=== PATIENT | male | born 1950 | race Asian ===

== ENCOUNTER 2018-06-14 06:08 | Inpatient (IN) | payer MEDICARE, BC ==
[~2018-06-14] VITALS: Ht 170.2 cm; Wt 81.3 kg
[2018-06-14] MEDS ORDERED: SOD CHLORIDE 0.9% 100 ML ONE (06:29)
[2018-06-14] MEDS ORDERED: IOHEXOL 300MG/ML 150 ML BTL ONE (06:29)
[2018-06-14] MEDS ORDERED: ASPIRIN 325 MG TAB PO ONE (06:30)
[2018-06-14] MEDS ORDERED: ASPI-903 PO (07:57)
[2018-06-14] MEDS ORDERED: ATOR20TA38 PO (07:57)
[2018-06-14] MEDS ORDERED: METO-448 PO (07:57)
[2018-06-14] MEDS ORDERED: OMEP20CA16 PO (07:57)
[2018-06-14] MEDS ORDERED: CLOP75TA27 PO (08:17)
[2018-06-14] MEDS ORDERED: ONDANSETRON 4 MG INJ IV PRN (08:30)
[2018-06-14] MEDS ORDERED: ACETAMINOPHEN 325 MG TAB PO PRN (08:30)
--- NOTE | 2018-06-14 09:12 | HP ---
Date/Time of Note Date/Time of Note DATE: 06/14/18 TIME: 09:09 Assessment/Plan VTE Prophylaxis Pharmacological prophylaxis: LMWH Lines/Catheters IV Catheter Type (from Nrs): Saline Lock Assessment/Plan Hospital Course 67-year-old male who presented with right-sided hemiparesis managed as follows: 1. Acute CVA, recurrent, with right-sided paresis 2. L sided carotid stenosis ( at least 50%) likely contributing to #1 3. HTN 4. HLD 5. GERD PLAN: -admit tele -continue aspirin, plavix and high dose statin -Neurology and Vascular surgery consult -MRI brain and 2D echo with bubble study -TSH, lipid panel, urine toxicology screen -PT/ OT / ST Further recommendations per consults and hospital course Result Diagram: 06/14/18 0618 06/14/18 0617 Results 24hrs Laboratory Tests Test 06/14/18 06:17 06/14/18 06:18 06/14/18 06:35 Prothrombin Time 12.7 Prothrombin Time Ratio 1.0 INR International Normalized Ratio 0.94 Activated Partial Thromboplast Time 28.7 Sodium Level 142 Potassium Level 3.8 Chloride Level 104 Carbon Dioxide Level 27 Anion Gap 11 Blood Urea Nitrogen 18 Creatinine 1.07 Est Glomerular Filtrat Rate mL/min > 60 Glucose Level 98 Calcium Level 9.6 Creatine Kinase 59 Creatine Kinase Index 0.7 Creatinine Kinase MB (Mass) 0.40 Troponin I < 0.012 Triglycerides Level 106 Cholesterol Level 160 LDL Cholesterol, Calculated 86 HDL Cholesterol 53 Cholesterol/HDL Ratio 3.0 Ethyl Alcohol Level < 10.0 H White Blood Count 7.1 Red Blood Count 4.38 L Hemoglobin 14.4 Hematocrit 42.5 Mean Corpuscular Volume 97.0 Mean Corpuscular Hemoglobin 32.9 Mean Corpuscular Hemoglobin Concent 33.9 Red Cell Distribution Width 12.5 Platelet Count 145 Mean Platelet Volume 9.9 Immature Granulocytes % 0.400 Neutrophils % 44.6 Lymphocytes % 35.5 Monocytes % 11.5 H Eosinophils % 7.3 H Basophils % 0.7 Nucleated Red Blood Cells % 0.0 Immature Granulocytes # 0.030 Neutrophils # 3.2 Lymphocytes # 2.5 Monocytes # 0.8 Eosinophils # 0.5 Basophils # 0.1 Nucleated Red Blood Cells # 0.0 Hemoglobin A1c 5.4 Bedside Glucose 82 HPI/ROS Admit Date/Time Admit Date/Time Hx of Present Illness 67-year-old male who presented to the emergency room, last known time of being fully well was 11 PM last night and patient presented at about 530 this morning with right-sided paresis. The patient was activated as a code stroke and he was evaluated by tele-neurology and unfortunately was not a candidate for TPA. A CT angiogram of the head and neck done in the emergency room did show left ICA with 50% stenosis and for that tele-neurology does recommend vascular surgery evaluation. The patient recently was in [place] about 3 weeks ago and at that time had similar symptoms and was diagnosed with an acute stroke. He but his symptoms resolved completely and he was maintained on aspirin, Plavix and high-dose statin. At this time, his lower extremity has regained function but he still weaker on the right than the left leg, but he continues to have significant paresis in the right upper extremity. There is no fever, there is no chest pain, there is no abdominal pain, there was no passing out or hitting of his head, no neck pain, no lower extremity swelling or shortness of breath. ROS 12 point review if systems was done and pertinent findings are as noted. PMH/Family/Social Past Medical History * HTN * HLD * GERD Medications Current Medications Ondansetron HCl (Zofran Inj) 4 mg ER BRIDGE PRN IV NAUSEA/VOMITING; Start 06/14/18 at 08:30; Stop 06/15/18 at 08:29 Acetaminophen (Tylenol Tab) 650 mg ER BRIDGE PRN PO .MILD PAIN 1-3 OR TEMP; Start 06/14/18 at 08:30; Stop 06/15/18 at 08:29 Coded Allergies: Penicillins (Verified Allergy, Unknown, 06/14/18) amoxicillin (Verified Allergy, Unknown, 06/14/18) Social History Alcohol Use: none Smoking Status: Never smoker Drug Use: none Exam/Review of Systems Vital Signs Vitals Vital Signs Date Temp Pulse Resp B/P (MAP) Pulse Ox O2 O2 Flow FiO2 Time Delivery Rate 06/14/18 72 18 143/95 99 Room Air 08:38 (111) 06/14/18 2 06:47 06/14/18 97.6 06:31 Exam Constitutional: alert, oriented Psych: nl mood/affect Head: normocephalic, atraumatic Eyes: PERRL ENMT: mucosa pink and moist Neck: supple Respiratory: clear to auscultation; No labored breathing Cardiovascular: regular rate and rhythm; No murmurs/extra sounds Gastrointestinal: soft, non-tender, bowel sounds Extremities: No edema Neurological: FARM HELPER II-XII intact, nl mental status, focal weakness (RUE paresis weak 3/5, RLE paresis weak 4/5); No confused Skin: No rash or lesions Additional Comments PROCEDURE: CT Angiogram of the head and neck with intravenous contrast CLINICAL INDICATION: Code stroke. COMPARISON: MRI 11/04/2017, CT brain 06/14/2018 TECHNIQUE: CT angiogram of the head and neck was obtained. Sagittal and coronal reformations and maximum intensity projection reconstructions were provided. Images were obtained before and after the uneventful administration of 120 mL Omnipaque-300 intravenous contrast. Direct measurements of vessel diameters was made in reference to measurements of the distal internal carotid artery diameter. 3-D post processing was provided. DOSE: The estimated administered radiation dose was CTDI vol = 49.50, 16.04 mGy. DLP = 692.62 mGy-cm. One or more of the following dose reduction techniques were used: automated exposure control, adjustment of the mA and/or kV according to patient size, or use of iterative reconstruction technique. DICOM images are available. FINDINGS: BRAIN Refer to separately dictated noncontrast CT brain of 06/14/2018. CEREBRAL ANGIOGRAM Aneurysm: No aneurysm identified. Anterior circulation: Internal carotid arteries: Atherosclerotic plaque of the bilateral cavernous and supraclinoid internal carotid arteries resulting in a moderate right mild left flow-limiting stenosis. Anterior cerebral arteries: No flow-limiting stenosis. Middle cerebral arteries: No flow-limiting stenosis. Posterior cerebral arteries: No flow-limiting stenosis. Anterior communicating artery: Present No flow-limiting stenosis. Posterior communicating arteries: Present on the right side. Posterior circulation: Basilar artery: No flow-limiting stenosis. V3/V4 vertebral arteries: No flow-limiting stenosis. Dural venous sinuses: Patent. NECK ANGIOGRAM Aorta: No flow-limiting stenosis. Right common carotid artery: No flow-limiting stenosis. Right internal carotid artery: Calcified plaque. Less than a 50 % stenosis by NASCET criteria. Right external carotid artery: No flow-limiting stenosis. Left common carotid artery: No flow-limiting stenosis. Left internal carotid artery: Calcified plaque. Less than a 50% stenosis by NASCET criteria Left external carotid artery: No flow-limiting stenosis. V1/V2 vertebral arteries: No flow-limiting stenosis. Vertebral artery dominance: Codominant. NECK Soft tissues: Normal. Bones: Normal. Lung apices: Clear. Additional comment: None. IMPRESSION: 1. No flow-limiting intracranial stenosis or aneurysm. 2. Less than 50 % stenosis of the bilateral extracranial internal carotid a rteries by NASCET criteria. 3. Bilateral antegrade flow in the vertebral arteries. 4. Moderate right mild left flow-limiting stenosis of the bilateral cavernous and supraclinoid internal carotid arteries. "No evidence for hemodynamically significant stenosis - validated velocity measurements with angiographic measurements, velocity criteria are extrapolated from diameter data as defined by the Society of Radiologists in Ultrasound Consensus Conference Radiology 2003; 229;340-346. This study does indirectly reference the measurement of the distal ICA diameter as the denominator for stenosis measurement." Call report: Results were called to Herrera Escalona at 06/14/2018 7:11:02 AM RPTAT: HRSR Physician Lay Date Time Electronically viewed and signed by Physician Lay on 06/14/2018 07:11 RR/ CC: HERRERA KING MD PROCEDURE: CT head without intravenous contrast CLINICAL INDICATION: Code stroke. COMPARISON: None. TECHNIQUE: Axial CT images from skull base to vertex with coronal and sagittal reformats. DOSE: The estimated administered radiation dose was CTDI vol = 39.64 mGy. DLP = 713.51 mGy-cm. One or more of the following dose reduction techniques were used: automated exposure control, adjustment of the mA and/or kV according to patient size, or use of iterative reconstruction. DICOM images are available. FINDINGS: Parenchyma: No acute hemorrhage, large territorial infarction, or mass. The meehan-white matter junctions are intact. No space occupying intra-axial masses or extra-axial fluid collections are present. There is out parenchymal volume loss. There are areas of decreased attenuation involving the bilateral subcortical, periventricular regions and deep white matter consistent with mild chronic microvascular white matter ischemic disease. Ventricles: No ventriculomegaly or ventricular effacement. Extra-axial spaces: No herniation or midline shift. Paranasal sinuses: Mild mucosal thickening of the bilateral maxillary sinus. Mastoids and middle ears: Clear. Visualized orbits: Normal. Vessels: [<There calcified atherosclerotic arterial plaque identified in the bilateral distal vertebral and bilateral internal carotid arteries.>] Bones: Normal. Extracranial soft tissues: Normal. Additional comment: None. IMPRESSION: 1. No acute intracranial abnormality. 2. Mild generalized parenchymal volume loss. 3. Mild chronic microvascular white matter ischemic disease. 4. Atherosclerosis. Call report: Results were called to Herrera Escalona at 06/14/2018 6:22:14 AM I reviewed EKG Rate: Within normal limits Rhythm: sinus Note: No ST elevation or depressions noted concerning for acute ischemic event. _ PROCEDURE: XR Chest. CLINICAL INDICATION: Chest pain and possible stroke TECHNIQUE: AP Portable chest. COMPARISON: None available FINDINGS: The soft tissues and bones are remarkable for mild bilateral acromioclavicular osteoarthropathy and thoracic enthesopathy. No focal infiltrates masses or effusions are present. The mediastinum and the heart size are normal. Mild vascular calcifications are present of the thoracic aorta. No pneumothorax is present. IMPRESSION: 1. No radiographic evidence for acute cardiopulmonary disease 2. Mild atherosclerotic vascular disease RPTAT: HDC .Sadie Veras MD, MD Date Time Electronically viewed and signed by .Sadie Veras MD, on 06/14/2018 06:50 .C/ CC: HERRERA KING MD [id number] SUSSY MANE Jun 14, 2018 09:12
--- NOTE | 2018-06-14 09:16 | ERD ---
ER Documentation Chief Complaint Chief Complaint RIGHT ARM WEAKNESS X 1 HR HPI Patient is a 67-year-old male with previous stroke who presents with right-sided weakness. The patient went to bed at 11 PM and was at his normal baseline. He woke up at 5:45 AM with right-sided arm weakness. He was brought in by ambulance. Code stroke was called from the field. Symptoms have been constant since this morning and he has had no treatment as of yet. Upon review of old medical records this is the patient's first visit to the emergency department. ROS All systems reviewed and are negative except as per history of present illness. Medications Home Meds Reported Medications Clopidogrel Bisulfate (Clopidogrel) 75 Mg Tablet, 75 MG PO DAILY, #30 TAB 06/14/18 Aspirin* (Aspirin* Chew) 81 Mg Tab.chew, 81 MG PO DAILY, TAB.CHEW 06/14/18 Metoprolol Tartrate* (Lopressor*) 25 Mg Tab, 25 MG PO BID, #60 TAB 06/14/18 Atorvastatin Calcium* (Atorvastatin Calcium*) 20 Mg Tablet, 20 MG PO QHS, #30 TAB 06/14/18 Omeprazole* (Omeprazole*) 20 Mg Capsule.dr, 20 MG PO BID, #60 CAP 06/14/18 Allergies Allergies: Coded Allergies: Penicillins (Verified Allergy, Unknown, 06/14/18) amoxicillin (Verified Allergy, Unknown, 06/14/18) PMhx/Soc Hx Miscellaneous Medical Probl: Yes (htn , high cholesterol ) Hx Substance Use: No Hx Tobacco Use: No Smoking Status: Never smoker FmHx Family History: No diabetes Physical Exam Vitals Vital Signs Date Temp Pulse Resp B/P (MAP) Pulse Ox O2 O2 Flow FiO2 Time Delivery Rate 06/14/18 72 18 143/95 99 Room Air 08:38 (111) 06/14/18 71 18 140/99 99 Room Air 07:32 (113) 06/14/18 72 20 143/100 98 Room Air 06:47 (114) 06/14/18 Nasal 2 06:47 Cannula 06/14/18 97.6 85 20 160/94 96 06:31 (116) Physical Exam Const: No acute distress Head: Atraumatic Eyes: Normal Conjunctiva ENT: Normal External Ears, Nose and Mouth. Neck: Full range of motion. No meningismus. Resp: Clear to auscultation bilaterally Cardio: Regular rate and rhythm, no murmurs Abd: Soft, non tender, non distended. Normal bowel sounds Skin: No petechiae or rashes Back: No midline or flank tenderness Ext: No cyanosis, or edema Neur: Awake and alert, right-sided arm weakness and unable to lift off the bed, right deputy controller strength decreased, cranial nerves II through XII intact, no slurred speech Psych: Normal Mood and Affect Result Diagram: 06/14/18 0618 06/14/18 0617 Results 24 hrs Laboratory Tests Test 06/14/18 06:17 06/14/18 06:18 06/14/18 06:35 Prothrombin Time 12.7 Sec Prothrombin Time Ratio 1.0 INR International Normalized Ratio 0.94 Activated Partial Thromboplast 28.7 Sec Time Sodium Level 142 mmol/L Potassium Level 3.8 mmol/L Chloride Level 104 mmol/L Carbon Dioxide Level 27 mmol/L Anion Gap 11 Blood Urea Nitrogen 18 mg/dl Creatinine 1.07 mg/dl Est Glomerular Filtrat Rate mL/min > 60 mL/min Glucose Level 98 mg/dl Calcium Level 9.6 mg/dl Creatine Kinase 59 IU/L Creatine Kinase Index 0.7 Creatinine Kinase MB (Mass) 0.40 ng/ml Troponin I < 0.012 ng/ml Triglycerides Level 106 mg/dl Cholesterol Level 160 mg/dl LDL Cholesterol, Calculated 86 mg/dl HDL Cholesterol 53 mg/dl Cholesterol/HDL Ratio 3.0 RATIO Ethyl Alcohol Level < 10.0 mg/dl White Blood Count 7.1 10^3/ul Red Blood Count 4.38 10^6/ul Hemoglobin 14.4 g/dl Hematocrit 42.5 % Mean Corpuscular Volume 97.0 fl Mean Corpuscular Hemoglobin 32.9 pg Mean Corpuscular 33.9 g/dl Hemoglobin Concent Red Cell Distribution Width 12.5 % Platelet Count 145 10^3/UL Mean Platelet Volume 9.9 fl Immature Granulocytes % 0.400 % Neutrophils % 44.6 % Lymphocytes % 35.5 % Monocytes % 11.5 % Eosinophils % 7.3 % Basophils % 0.7 % Nucleated Red Blood Cells % 0.0 /100WBC Immature Granulocytes # 0.030 10^3/ul Neutrophils # 3.2 10^3/ul Lymphocytes # 2.5 10^3/ul Monocytes # 0.8 10^3/ul Eosinophils # 0.5 10^3/ul Basophils # 0.1 10^3/ul Nucleated Red Blood Cells # 0.0 10^3/ul Hemoglobin A1c 5.4 % Bedside Glucose 82 mg/dL Current Medications Medications Dose Sig/Ramos Start Time Status Last (Trade) Ordered Route PRN Stop Time Admin Dose Reason Admin Aspirin 325 mg ONCE ONCE 06/14/18 DC 06/14/18 (Aspirin) PO 06:30 06/14/18 06:30 06:31 Sodium 100 ml @ ud STK-MED 06/14/18 DC 06/14/18 Chloride ONCE .ROUTE 06:29 06/14/18 06:31 06:30 Iohexol 150 ml STK-MED 06/14/18 DC 06/14/18 (Omnipaque ONCE .ROUTE 06:29 06/14/18 06:31 300mg/ ml) 06:30 Ondansetron 4 mg ER BRIDGE 06/14/18 HCl (Zofran PRN IV 08:30 06/15/18 Inj) NAUSEA/VOMITI 08:29 NG 650 mg ER BRIDGE 06/14/18 Acetaminophen PRN PO 08:30 06/15/18 (Tylenol .MILD PAIN 08:29 Tab) 1-3 OR TEMP Procedures/MDM CT brain read by radiology. CT of the head and neck read by radiology. Chest x-ray read by radiology. EKG read by me: Rate/Rhythm: Regular rate and rhythm at a normal rate Intervals: Normal Impression: No evidence of ischemia or arrhythmia LAB INTERPRETATION: Normal MEDICAL DECISION MAKING: Patient has an acute stroke which is outside the window for IV TPA as he went to bed at 11 PM. The patient has no large vessel occlusion seen that would require transfer at this time. He does have a stenosis of his carotid artery which may require vascular consultation per telemetry neurology. The patient was given aspirin after he passed a swallow evaluation. He is not a TPA candidate. He had a bedside swallow evaluation and NIH stroke scale performed. Stroke assessment and timing: Last Known Well Time (LKWT): 2300 Arrival to ED: 0607 Stroke code activation: 0605 from the field Patient taken to CT scan: 06 Initial neurology discussion: 0639 NIHSS: Performed by nursing TPA decision-making: Not a TPA candidate given time of onset greater than 4.5 hours Interventional decision-making: No large vessel occlusion so no interventional procedures available. Stroke neurologist on-call: Dr. Tran Critical Care Note: Total time: 35 excluding all billable procedures. Indication/Organ System Threat: Acute neurologic deficit and stroke code activation that requires emergent evaluation and assessment to prevent neurologic compromising collapse. I spent the above amount of critical care time with the patient, not including billable procedures. This included chart review, consultations, repeat bedside evaluations, and titration of appropriate medications to prevent cardiopulmonary or respiratory collapse. I kept the patient and/or family informed of laboratory and diagnostic imaging results throughout the emergency room course. DISPOSITION PLAN: Admit to Dr. Amato from the panel team to a telemetry inpatient bed CONSULTATION: Dr. Tran from telemetry neurology Departure Diagnosis: Primary Impression: Stroke CVA mechanism: unspecified Qualified Codes: I63.9 - Cerebral infarction, unspecified Condition: Serious HERRERA KING MD Jun 14, 2018 09:16
--- NOTE | 2018-06-14 09:31 | STROKE ---
Date/Time of Note Date/Time of Note DATE: 06/14/18 TIME: 09:20 Patient Information General Patient location: emergency Arrival Date Age 67 Gender male Weight 81.82 kg POC Glucose Glucose Result Bedside Glucose - 72 Hours Test 06/14/18 06:35 Bedside Glucose 82 mg/dL (70-220) Vital Signs Vital Signs Vital Signs Date Temp Pulse Resp B/P (MAP) Pulse Ox O2 O2 Flow FiO2 Time Delivery Rate 06/14/18 72 18 143/95 99 Room Air 08:38 (111) 06/14/18 2 06:47 06/14/18 97.6 06:31 Patient History Past Medical History Stroke, Hypertension, Hypercholesterolemia Current Medications Anti-Platelets: ASA 81mg Allergies: Coded Allergies: Penicillins (Verified Allergy, Unknown, 06/14/18) amoxicillin (Verified Allergy, Unknown, 06/14/18) Labs Coagulation Labs: Coagulation Test 06/14/18 06:17 Activated Partial Thromboplast Time 28.7 Sec (23.0-35.0) History & Physical Patient History Notes Pt Hx Reviewed History of Present Illness This is a 67 yo M with history of HTN, HL, recent stroke at the beginning of May, who now comes in with recurrent right sided weakness. He went to bed last night at about 11pm and woke up this morning with symptoms. He is currently on a daily aspirin. Review of Systems Constitutional: no symptoms reported EENTM: no symptoms reported Respiratory: no symptoms reported NIH Stroke Scale NIH Stroke Scale [id number] - Motor Leg - Right: [id number] E: 06/14/18 TIME: 07:11 Submitted By Jose A Tran t-PA Imaging Review Imaging Reviewed: Yes Date/Time Imaging Reviewed DATE: 06/14/18 TIME: 07:00 Imaging Findings no acute stroke or bleed, at least 50% stenosis of the L ICA distal to the bifurcation. intracranial athero t-PA Administration Recommendation: No Weight 81.82 kg Recommedation submitted by Jose A Tran Reason t-PA not Recommended wake up stroke, symptom onset well beyond the eligible window t-PA Not Recommended Date/Time 6:36 AM Recommendations Impression [id number] Site: [id number] Pre-cerebral arteries Diagnosis This is a 67 yo M with HL, HTN, recent stroke who now presents with likely a re current stroke affecting the right side. NIHSS was [address]/CTA studies were reviewed by me and no obvious stroke visualized, however the left ICA is at least 50% stenosed and the likely etiology of his deficits. He is on an antiplatelet and statin at home, however has now had 2 stroke events in less than a month. Disposition admit to telemetry Recommendation 1) admit to telemetry. 2) consult to neurology and vascular surgery regarding carotid revascularization. 3) MRI brain (can be ordered routine). 4) carotid duplex. 5) resume aspirin for now and statin JOSE A TRAN MD Jun 14, 2018 09:31
[2018-06-14 15:29] VITALS: BP 143/91; PULSE 74; RESP 18
[2018-06-14 15:39] VITALS: Ht 170.2 cm; Wt 81.3 kg
--- NOTE | 2018-06-14 16:34 | CONS ---
Assessment/Plan Assessment/Plan Hospital Course 67 M c/ reported recent stroke c/b R hemiparesis, who presents for evaluation of recurrent R arm and leg weakness....for which neurology is consulted.. The clinical picture is most ominously concerning for acute stroke.. However, the identical distribution to his prior event 3 weeks ago raises suspicion for recrudescence.. HCT is unremarkable CTA H/N is notable for mild intracranial athero w/o significant extracranial ICA stenosis... P: MRI brain for further characterization OK to Cont plavix, asa, lipitor daily for secondary stroke prevention for now Permissive HTN to 220/110 today, pending the above Await UA, UDS PT/OT/ST as necessary Other management per primary Will follow clinically Consultation Date/Type/Reason Admit Date/Time Type of Consult Neurology Reason for Consultation right sided weakness Requesting Provider: SUSSY MANE Date/Time of Note DATE: 06/14/18 TIME: 16:34 Hx of Present Illness 67-year-old male who presented to the emergency room, last known time of being fully well was 11 PM last night and patient presented at about 530 this morning with right-sided paresis. The patient was activated as a code stroke and he was evaluated by tele-neurology and unfortunately was not a candidate for TPA. A CT angiogram of the head and neck done in the emergency room did show left ICA with 50% stenosis and for that tele-neurology does recommend vascular surgery evaluation. The patient recently was in [place] about 3 weeks ago and at that time had similar symptoms and was diagnosed with an acute stroke. He but his symptoms resolved completely and he was maintained on aspirin, Plavix and high-dose statin. At this time, his lower extremity has regained function but he still weaker on the right than the left leg, but he continues to have significant paresis in the right upper extremity. There is no fever, there is no chest pain, there is no abdominal pain, there was no passing out or hitting of his head, no neck pain, no lower extremity swelling or shortness of breath. negative unless noted otherwise in HPI Exam/Review of Systems Exam Vitals Vital Signs Date Temp Pulse Resp B/P (MAP) Pulse Ox O2 O2 Flow FiO2 Time Delivery Rate 06/14/18 97.9 74 18 143/91 97 15:29 (108) 06/14/18 Room Air 13:53 06/14/18 2 06:47 Exam PE: Gen Appearance: No Apparent Distress HEENT: Normocephalic Cardiovascular: Regular rate Lungs: Clear bilaterally Abdomen: Soft Extremities: Dry NE: The patient was alert and oriented. Language was normal. Fund of knowledge was normal. Pupils were equal and reactive to light. There was no afferent pupillary defect. Visual khoury were normal. Funduscopic examination was limited. Extra-ocular movements were full. Ptosis was absent. There was no nystagmus. Facial sensation was normal. Face was symmetric with normal strength. Hearing was intact. Palate movements were normal. Neck strength was normal. There was normal tongue bulk and speed of movement. Tone was normal. Muscle bulk was normal. I did not see fasciculations. R arm and leg were weak with present arm/leg drift. L side was strong to confrontation. Sensation to touch was diminished in the RUE. Vibration sensation was otherwise normal. Temperature and pinprick sensation was normal. Rapid alternating movements were normal. There was no dysmetria. There was no intention tremor. Gait was deferred due to bedrest. Arm and leg reflexes were 2+ and symmetric. Pompa's sign was absent. Plantar responses were flexor. Results Result Diagram: 06/14/18 0618 06/14/18 0617 Results 24hrs Laboratory Tests Test 06/14/18 06:17 06/14/18 06:18 06/14/18 06:35 Prothrombin Time 12.7 Prothrombin Time Ratio 1.0 INR International Normalized Ratio 0.94 Activated Partial Thromboplast Time 28.7 Sodium Level 142 Potassium Level 3.8 Chloride Level 104 Carbon Dioxide Level 27 Anion Gap 11 Blood Urea Nitrogen 18 Creatinine 1.07 Est Glomerular Filtrat Rate mL/min > 60 Glucose Level 98 Calcium Level 9.6 Creatine Kinase 59 Creatine Kinase Index 0.7 Creatinine Kinase MB (Mass) 0.40 Troponin I < 0.012 Triglycerides Level 106 Cholesterol Level 160 LDL Cholesterol, Calculated 86 HDL Cholesterol 53 Cholesterol/HDL Ratio 3.0 Ethyl Alcohol Level < 10.0 H White Blood Count 7.1 Red Blood Count 4.38 L Hemoglobin 14.4 Hematocrit 42.5 Mean Corpuscular Volume 97.0 Mean Corpuscular Hemoglobin 32.9 Mean Corpuscular Hemoglobin Concent 33.9 Red Cell Distribution Width 12.5 Platelet Count 145 Mean Platelet Volume 9.9 Immature Granulocytes % 0.400 Neutrophils % 44.6 Lymphocytes % 35.5 Monocytes % 11.5 H Eosinophils % 7.3 H Basophils % 0.7 Nucleated Red Blood Cells % 0.0 Immature Granulocytes # 0.030 Neutrophils # 3.2 Lymphocytes # 2.5 Monocytes # 0.8 Eosinophils # 0.5 Basophils # 0.1 Nucleated Red Blood Cells # 0.0 Hemoglobin A1c 5.4 Bedside Glucose 82 Medications Medication Current Medications Ondansetron HCl (Zofran Inj) 4 mg ER BRIDGE PRN IV NAUSEA/VOMITING; Start 06/14/18 at 08:30; Stop 06/15/18 at 08:29 Acetaminophen (Tylenol Tab) 650 mg ER BRIDGE PRN PO .MILD PAIN 1-3 OR TEMP; S tart 06/14/18 at 08:30; Stop 06/15/18 at 08:29 Aspirin (Aspirin) 81 mg DAILY PO ; Start 06/15/18 at 09:00 Atorvastatin Calcium (Lipitor) 80 mg QHS PO ; Start 06/14/18 at 21:00 Clopidogrel Bisulfate (plaVIX) 75 mg DAILY PO ; Start 06/15/18 at 09:00 Metoprolol Tartrate (Lopressor) 25 mg BID PO ; Start 06/14/18 at 21:00; Status Hold Pantoprazole (Protonix Tab) 40 mg DAILY@06 PO ; Start 06/15/18 at 06:00 Past Medical History reviewed Home Meds Reported Medications Clopidogrel Bisulfate (Clopidogrel) 75 Mg Tablet, 75 MG PO DAILY, #30 TAB 06/14/18 Aspirin* (Aspirin* Chew) 81 Mg Tab.chew, 81 MG PO DAILY, TAB.CHEW 06/14/18 Metoprolol Tartrate* (Lopressor*) 25 Mg Tab, 25 MG PO BID, #60 TAB 06/14/18 Atorvastatin Calcium* (Atorvastatin Calcium*) 20 Mg Tablet, 20 MG PO QHS, #30 TAB 06/14/18 Omeprazole* (Omeprazole*) 20 Mg Capsule.dr, 20 MG PO BID, #60 CAP 06/14/18 Medications Current Medications Ondansetron HCl (Zofran Inj) 4 mg ER BRIDGE PRN IV NAUSEA/VOMITING; Start 06/14/18 at 08:30; Stop 06/15/18 at 08:29 Acetaminophen (Tylenol Tab) 650 mg ER BRIDGE PRN PO .MILD PAIN 1-3 OR TEMP; Start 06/14/18 at 08:30; Stop 06/15/18 at 08:29 Aspirin (Aspirin) 81 mg DAILY PO ; Start 06/15/18 at 09:00 Atorvastatin Calcium (Lipitor) 80 mg QHS PO ; Start 06/14/18 at 21:00 Clopidogrel Bisulfate (plaVIX) 75 mg DAILY PO ; Start 06/15/18 at 09:00 Metoprolol Tartrate (Lopressor) 25 mg BID PO ; Start 06/14/18 at 21:00; Status Hold Pantoprazole (Protonix Tab) 40 mg DAILY@06 PO ; Start 06/15/18 at 06:00 Allergies: Coded Allergies: Penicillins (Verified Allergy, Unknown, 06/14/18) amoxicillin (Verified Allergy, Unknown, 06/14/18) Past Surgical History reviewed Social History reviewed Alcohol Use: none Smoking Status: Former smoker Drug Use: none RENATA HOOVER NP Jun 14, 2018 16:34 COSTA RAPP Jun 14, 2018 16:41
[2018-06-14 17:11] VITALS: PULSE 67
[2018-06-14 20:05] VITALS: BP 134/82; PULSE 73; RESP 20
[2018-06-14 20:19] VITALS: PULSE 62
[2018-06-14] MEDS: ATORVASTATIN 80 MG TAB PO SCH (20:43)
[2018-06-14] MEDS ORDERED: METOPROLOL 25 MG TAB PO SCH (21:00)
[2018-06-14] MEDS ORDERED: NON-FORMULARY/PATIENT OWN MED (Omeprazole* 20 MG) PO SCH (21:00)
[2018-06-15] VITALS (14 sets, daily range): BP systolic 113–146; BP diastolic 63–83; PULSE 61–80; RESP 18–20
[2018-06-15] MEDS: PANTOPRAZOLE (EC) 40 MG TAB PO SCH (06:37)
[2018-06-15] MEDS: ASPIRIN 81 MG TAB PO SCH (08:25)
[2018-06-15] MEDS: CLOPIDOGREL 75 MG TAB PO SCH (08:25)
--- NOTE | 2018-06-15 10:35 | RADRPT ---
Echocardiogram Report Patient Name: Kayden MIRZAent ID: [id number] : 1950 (67y 10m)Study Date: 06/15/2018 8:36:57 AM Gender: MAccession #: [id number] Tech: Lan Gresham [facility] [[email or web address]] Location: [address] Ref.Physician: SUSSY MANE Height(Cm): BSA: Weight(Kg): Quality: AdequateAccount #: Procedures: Echocardiographic Report: Transthoracic echocardiogram with complete 2D, M-Mode, and doppler examination. Indications: Chest Pain. Measurements: 2D/M Mode Doppler Measurement Value Normal Range Measurement Value Normal Range LVIDd 2D 4.2 [ 4.2 - 5.8 ] cm AV Peak Saqib 1.1 [ 100.0 - 170.0 ] cm/sec LVIDs 2D 2.7 [ 2.5 - 4.0 ] cm AV Peak PG 5.0 [ 2.0 - 9.0 ] mmHg LVPWd 2D 0.9 [ 0.6 - 1.0 ] cm LVOT Peak Saqib 1.0 [ 70.0 - 110.0 ] cm/sec IVSd 2D 1.4 [ 0.6 - 1.0 ] cm LVOT Peak PG 4.0 [ 2.0 - 6.0 ] mmHg AoR Diam 2D 2.5 [ 2.6 - 3.4 ] cm MV E Peak Saqib 0.6 [ 60.0 - 130.0 ] cm/sec EDV 2D 79.5 [ 62.0 - 150.0 ] ml MV A Peak Saqib 1.0 [ 100.0 - 120.0 ] cm/sec ESV 2D 25.8 [ 21.0 - 61.0 ] ml MV E/A 0.6 [ 0.8 - 1.5 ] ratio EF 2D 67.5 [ 52.0 - 72.0 ] percent MV Decel Time 218 [ 104 - 258 ] msec LA Dimen 2D 3.5 [ 3.0 - 4.0 ] cm Lat E` Saqib 0.1 [ 10.0 - 15.0 ] cm/sec Lateral E/E` 5.1 [ 1.0 - 2.0 ] ratio MV E/A 0.6 [ 0.8 - 1.5 ] ratio TR Peak Saqib 2.6 [ 100.0 - 280.0 ] cm/sec TR Peak PG 26.0 mmHg RVSP 36.0 [ 10.0 - 36.0 ] mmHg Findings: Left Ventricle: Normal left ventricular systolic function. Normal left ventricular cavity size. Sigmoid septum. Ejection fraction is visually estimated at 65 %. Tissue Doppler/Mitral Doppler indices are consistent with impaired relaxation (Stage I diastolic dysfunction). Right Ventricle: Normal right ventricular size. Normal right ventricular systolic function. Left Atrium: The left atrium is normal in size. Right Atrium: The right atrium is normal in size. Atrial Septum: Bubble study was performed with and with out valsalva indicating no evidence of intra atrial shunt. Mitral Valve: Mild mitral leaflet calcification. Mild mitral annular calcification. Trace mitral regurgitation. Aortic Valve: No hemodynamically significant aortic stenosis by doppler. Aortic cusps appear mildly calcified. Tricuspid Valve: Normal appearance of the tricuspid valve. Estimated peak PA systolic pressure 36 mmHg. There is mild tricuspid regurgitation. Pulmonic Valve: Normal pulmonic valve appearance. There is mild pulmonic regurgitation. Pericardium: Normal pericardium with no significant pericardial effusion. Aorta: Normal aortic root. IVC: Normal size and normal respiratory collapse consistent with normal right atrial pressure. Conclusions: Normal left ventricular systolic function. Normal left ventricular cavity size. Sigmoid septum. Ejection fraction is visually estimated at 65 %. Tissue Doppler/Mitral Doppler indices are consistent with impaired relaxation (Stage I diastolic dysfunction). Mild mitral leaflet calcification. Mild mitral annular calcification. Trace mitral regurgitation. No hemodynamically significant aortic stenosis by doppler. Aortic cusps appear mildly calcified. Normal appearance of the tricuspid valve. Estimated peak PA systolic pressure 36 mmHg. There is mild tricuspid regurgitation. Bubble study was performed with and with out valsalva indicating no evidence of intra atrial shunt. Electronically Signed By: Caleb Gonzales 2018-06-15 10:34:16 PDT
--- NOTE | 2018-06-15 15:50 | CONS ---
Assessment/Plan Assessment/Plan Hospital Course 67 M c/ reported recent stroke c/b R hemiparesis, who presents for evaluation of recurrent R arm and leg weakness....for which neurology is consulted.. The identical distribution to his prior event 3 weeks ago raises suspicion for recrudescence.. MRI brain is notable for multiple punctate L hemispheric infarcts on DWI, without definitive ADC correlate. CTA H/N is notable for mild intracranial athero w/o significant extracranial ICA stenosis... P: OK to cont plavix, asa, lipitor daily for secondary stroke prevention for now Await UA, UDS PT/OT/ST as necessary Other management per primary Will follow clinically Consultation Date/Type/Reason Admit Date/Time Jun 14, 2018 at 08:15 Type of Consult Neurology Reason for Consultation weakness Requesting Provider: SUSSY MANE Date/Time of Note DATE: 06/15/18 TIME: 15:50 24 HR Interval Summary Free Text/Dictation Continues acute care. S/p MRI brain. Exam Vital Signs Vitals Vital Signs Date Temp Pulse Resp B/P (MAP) Pulse Ox O2 O2 Flow FiO2 Time Delivery Rate 06/15/18 98.2 65 19 113/63 96 15:35 (80) 06/14/18 Room Air 13:53 06/14/18 2 06:47 Intake and Output 06/14/18 06/14/18 06/15/18 1515:00 23:00 07:00 IntakeIntake Total 300 ml OutputOutput Total 600 ml BalanceBalance -300 ml Exam PE: Gen Appearance: No Apparent Distress HEENT: Normocephalic Cardiovascular: Regular rate Lungs: Clear bilaterally Abdomen: Soft Extremities: Dry NE: The patient was alert and oriented. Language was normal. Fund of knowledge was normal. Pupils were equal and reactive to light. There was no afferent pupillary defect. Visual khoury were normal. Funduscopic examination was limited. Extra-ocular movements were full. Ptosis was absent. There was no nystagmus. Facial sensation was normal. Face was symmetric with normal strength. Hearing was intact. Palate movements were normal. Neck strength was normal. There was normal tongue bulk and speed of movement. Tone was normal. Muscle bulk was normal. I did not see fasciculations. R arm and leg were weak with present arm/leg drift. L side was strong to confrontation. Sensation to touch was diminished in the RUE. Vibration sensation was otherwise normal. Temperature and pinprick sensation was normal. Rapid alternating movements were normal. There was no dysmetria. There was no intention tremor. Gait was deferred due to bedrest. Arm and leg reflexes were 2+ and symmetric. Pompa's sign was absent. Plantar responses were flexor. RENATA HOOVER NP Jun 15, 2018 15:50 COSTA RAPP Jun 15, 2018 21:06
[2018-06-15] MEDS: ATORVASTATIN 80 MG TAB PO SCH (20:59)
[2018-06-16] VITALS (11 sets, daily range): BP systolic 123–148; BP diastolic 70–87; PULSE 68–87; RESP 16–18
[2018-06-16] MEDS: PANTOPRAZOLE (EC) 40 MG TAB PO SCH (05:31)
--- NOTE | 2018-06-16 07:15 | CONS ---
Assessment/Plan Assessment/Plan Hospital Course 67 M c/ reported recent stroke c/b R hemiparesis, who presents for evaluation of recurrent R arm and leg weakness....for which neurology is consulted.. MRI brain is notable for multiple punctate L hemispheric infarcts on DWI, without definitive ADC correlate. OSH MRI brain from May 2018 was reviewed...there is certainly an accumulation of ischemia since this exam was completed.. CTA H/N is notable for mild intracranial athero w/o significant extracranial ICA stenosis... TTE is unrevealing. P: OK to cont plavix, asa, lipitor daily for secondary stroke prevention for now Cardiology consult for ARIC Consider 30 day holter to eval for paroxysmal afib if the above is unrevealing or unavailable.. PT/OT/ST as necessary Other management per primary Will follow clinically Consultation Date/Type/Reason Admit Date/Time Jun 14, 2018 at 08:15 Type of Consult Neurology Reason for Consultation weakness Requesting Provider: SUSSY MANE Date/Time of Note DATE: 06/16/18 TIME: 07:15 24 HR Interval Summary Free Text/Dictation continues acute care Exam Vital Signs Vitals Vital Signs Date Temp Pulse Resp B/P (MAP) Pulse Ox O2 O2 Flow FiO2 Time Delivery Rate 06/16/18 97.8 78 16 123/70 98 Room Air 07:04 (87) 06/14/18 2 06:47 Intake and Output 06/15/18 06/15/18 06/16/18 1515:00 23:00 07:00 IntakeIntake Total 1000 ml BalanceBalance 1000 ml Exam PE: Gen Appearance: No Apparent Distress HEENT: Normocephalic Cardiovascular: Regular rate Abdomen: Soft Extremities: Dry NE: The patient was alert and oriented. Language was normal. Fund of knowledge was normal. Pupils were equal and reactive to light. There was no afferent pupillary defect. Visual khoury were normal. Funduscopic examination was limited. Extra-ocular movements were full. Ptosis was absent. There was no nystagmus. Facial sensation was normal. Face was symmetric with normal strength. Hearing was intact. Palate movements were normal. Neck strength was normal. There was normal tongue bulk and speed of movement. Tone was normal. Muscle bulk was normal. I did not see fasciculations. Arms and legs were mildly weak on the right. Vibration sensation was normal. Temperature and pinprick sensation was normal. Rapid alternating movements were normal. There was no dysmetria. There was no intention tremor. Gait was deferred due to bedrest. Arm and leg reflexes were 2+ and symmetric. Pompa's sign was absent. Plantar responses were flexor. COSTA RAPP Jun 16, 2018 07:15
[2018-06-16] MEDS: ASPIRIN 81 MG TAB PO SCH (08:33)
[2018-06-16] MEDS: CLOPIDOGREL 75 MG TAB PO SCH (08:33)
--- NOTE | 2018-06-16 14:09 | PN ---
Date/Time of Note Date/Time of Note DATE: 06/16/18 TIME: 14:00 Assessment/Plan VTE Prophylaxis [place] [facility] [place]: 3 [place]CD applied [place] [facility] [place] Yes Pharmacological prophylaxis: NA/contraindicated, heparin Pharm contraindication: other (Patient is high risk for hemorrhagic transformation as he is also on dual antiplatelet therapy) Lines/Catheters IV [facility]atheter Type (from [facility]): Saline Lock Assessment/Plan Hospital Course Subjective: Feels well, having improved range of motion in right upper extremity Objective: General: Alert, oriented, no distress Neck: Supple Chest: Clear to auscultation bilaterally Cardiovascular: S1-S2 only, no murmurs Abdomen: Soft, nontender, not nondistended, positive bowel sounds Extremity: No edema Neurology: 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 Left lower extremity remains fine. Assessment and plan: 67-year-old male who presented with right-sided hemiparesis managed as follows: 1. Acute CVA, recurrent, with right-sided paresis improving: -MRI showed multiple small embolic strokes. -Neurology compared outside hospital MRI brain from May, with the one that was done here, it was determined that there is certainly an accumulation of ischemia since then. They recommended ARIC and possible 30-day Holter to evaluate for paroxysmal atrial fibrillation if ARIC was unrevealing. -Cardiology consultation has been obtained. -Continue dual antiplatelets and statin therapy 2. L sided carotid stenosis: -Patient has moderate right-sided flow-limiting stenosis in the supraclinoid portion of internal carotid artery, but no hemodynamically significant stenosis in the neck portion. -Based on this, vascular surgery has determined that patient does not need any surgical intervention from his standpoint. -He stated that if neurology felt vascular intervention was necessary, patient will need either neurosurgery or neuroradiology. -Spoke with neurology, the no surgical intervention is required at this time for findings described above. 3. HTN: good control 4. HLD: continue statin 5. GERD -Continue inpatient rehab, await cardiology recommendations and plan. Patient will likely get ARIC tomorrow. Result Diagram: 06/16/18 0620 06/16/18 0621 Results 24hrs Laboratory Tests Test 06/16/18 06:20 06/16/18 06:21 White Blood Count 7.4 Red Blood Count 4.50 L Hemoglobin 14.8 Hematocrit 43.7 Mean Corpuscular Volume 97.1 Mean Corpuscular Hemoglobin 32.9 Mean Corpuscular Hemoglobin Concent 33.9 Red Cell Distribution Width 12.3 Platelet Count 167 Mean Platelet Volume 10.1 Immature Granulocytes % 0.500 H Neutrophils % 61.9 Lymphocytes % 17.8 Monocytes % 11.8 H Eosinophils % 7.2 H Basophils % 0.8 Nucleated Red Blood Cells % 0.0 Immature Granulocytes # 0.040 H Neutrophils # 4.6 Lymphocytes # 1.3 Monocytes # 0.9 Eosinophils # 0.5 Basophils # 0.1 Nucleated Red Blood Cells # 0.0 Sodium Level 140 Potassium Level 3.6 Chloride Level 105 Carbon Dioxide Level 26 Anion Gap 9 Blood Urea Nitrogen 18 Creatinine 1.06 Est Glomerular Filtrat Rate mL/min > 60 Glucose Level 81 Calcium Level 9.6 Exam/Review of Systems Exam Vitals Vital Signs Date Temp Pulse Resp B/P (MAP) Pulse Ox O2 O2 Flow FiO2 Time Delivery Rate 06/16/18 69 12:13 06/16/18 98.0 18 132/87 97 Room Air 11:00 (102) 06/14/18 2 06:47 Intake and Output 06/15/18 06/15/18 06/16/18 1515:00 23:00 07:00 IntakeIntake Total 1000 ml BalanceBalance 1000 ml Results Results 24hrs Laboratory Tests Test 06/16/18 06:20 06/16/18 06:21 White Blood Count 7.4 Red Blood Count 4.50 L Hemoglobin 14.8 Hematocrit 43.7 Mean Corpuscular Volume 97.1 Mean Corpuscular Hemoglobin 32.9 Mean Corpuscular Hemoglobin Concent 33.9 Red Cell Distribution Width 12.3 Platelet Count 167 Mean Platelet Volume 10.1 Immature Granulocytes % 0.500 H Neutrophils % 61.9 Lymphocytes % 17.8 Monocytes % 11.8 H Eosinophils % 7.2 H Basophils % 0.8 Nucleated Red Blood Cells % 0.0 Immature Granulocytes # 0.040 H Neutrophils # 4.6 Lymphocytes # 1.3 Monocytes # 0.9 Eosinophils # 0.5 Basophils # 0.1 Nucleated Red Blood Cells # 0.0 Sodium Level 140 Potassium Level 3.6 Chloride Level 105 Carbon Dioxide Level 26 Anion Gap 9 Blood Urea Nitrogen 18 Creatinine 1.06 Est Glomerular Filtrat Rate mL/min > 60 Glucose Level 81 Calcium Level 9.6 Medications Medication Current Medications Aspirin (Aspirin) 81 mg DAILY PO Last administered on 06/16/18 08:33; Admin Dose 81 MG; Start 06/15/18 at 09:00 Atorvastatin Calcium (Lipitor) 80 mg QHS PO Last administered on 06/15/18at 20:59; Admin Dose 80 MG; Start 06/14/18 at 21:00 Clopidogrel Bisulfate (plaVIX) 75 mg DAILY PO Last administered on 06/16/18at 08:33; Admin Dose 75 MG; Start 06/15/18 at 09:00 Metoprolol Tartrate (Lopressor) 25 mg BID PO ; Start 06/14/18 at 21:00; Status Hold Pantoprazole (Protonix Tab) 40 mg DAILY@06 PO Last administered on 06/16/18at 05:31; Admin Dose 40 MG; Start 06/15/18 at 06:00 SUSSY MANE Jun 16, 2018 14:09
--- NOTE | 2018-06-16 15:45 | CONS ---
Assessment/Plan Assessment/Plan Hospital Course (Demo Recall) Recurrent stroke with right sided deficits: Neurology eval and comparison of MRIs showed that he has new lesions on the left. CTA showed <50% carotid stenosis and vascular surgery did not think the pt needed intervention. Bubble study has been negative. No arrhythmias on tele. Possible that he still has a right to left shunt which is not well seen by bubble study. Also with palpitations, occult afib is in the differential. Bilateral carotid artery stenosis: <50% per CTA -ARIC tomorrow to eval -NPO after midnight -check bilateral lower extremities for DVTs since hes been traveling and if he has a shunt, would explain his strokes -continue ASA, plavix, lipitor -if above unrevealing, outpt 30 day monitor Consultation Date/Type/Reason Admit Date/Time Jun 14, 2018 at 08:15 Date of Consultation: Jun 16, 2018 Type of Consult Cardiology Reason for Consultation Stroke, r/o cardioembolic source Requesting Provider: SUSSY MANE Date/Time of Note DATE: 06/16/18 TIME: 15:29 Hx of Present Illness 67 yo M with a h/o recent stroke while traveling to [facility], who presented with recurrent right arm weakness. He was in [place] about 3-4 weeks ago when he started to have right arm and leg weakness. He was in the hospital for a few days and was told he needed carotid surgery but could not be fly home for 2 wee ks. He came back last week and in the meantime his symptoms improved 90%. On date of admission, he had weakness in his right arm again which again have improved. Neurology eval and comparison of MRIs showed that he has new lesions on the left. CTA showed <50% carotid stenosis and vascular surgery did not think the pt needed intervention. Bubble study has been negative. No arrhythmias on tele. The question of cardioembolic source is being entertained for which cardiology is consulted. The pt denies a h/o arrhythmias but does admit that once a month he gets palpitations lasting 30 seconds. Otherwise no cardiac disease. No leg swelling or pain. He walks around on the airplane when he travels. per HPI Past Medical History per hPI Home Meds Reported Medications Clopidogrel Bisulfate (Clopidogrel) 75 Mg Tablet, 75 MG PO DAILY, #30 TAB 06/14/18 Aspirin* (Aspirin* Chew) 81 Mg Tab.chew, 81 MG PO DAILY, TAB.CHEW 06/14/18 Metoprolol Tartrate* (Lopressor*) 25 Mg Tab, 25 MG PO BID, #60 TAB 06/14/18 Atorvastatin Calcium* (Atorvastatin Calcium*) 20 Mg Tablet, 20 MG PO QHS, #30 TAB 06/14/18 Omeprazole* (Omeprazole*) 20 Mg Capsule.dr, 20 MG PO BID, #60 CAP 06/14/18 Medications Current Medications Aspirin (Aspirin) 81 mg DAILY PO Last administered on 06/16/18at 08:33; Admin Dose 81 MG; Start 06/15/18 at 09:00 Atorvastatin Calcium (Lipitor) 80 mg QHS PO Last administered on 06/15/18at 20:59; Admin Dose 80 MG; Start 06/14/18 at 21:00 Clopidogrel Bisulfate (plaVIX) 75 mg DAILY PO Last administered on 06/16/18at 08:33; Admin Dose 75 MG; Start 06/15/18 at 09:00 Metoprolol Tartrate (Lopressor) 25 mg BID PO ; Start 06/14/18 at 21:00; Status Hold Pantoprazole (Protonix Tab) 40 mg DAILY@06 PO Last administered on 06/16/18at 05:31; Admin Dose 40 MG; Start 06/15/18 at 06:00 Allergies: Coded Allergies: Penicillins (Verified Allergy, Unknown, 06/14/18) amoxicillin (Verified Allergy, Unknown, 06/14/18) Social History Alcohol Use: none Smoking Status: Former smoker Drug Use: none Exam/Review of Systems Exam Vitals Vital Signs Date Temp Pulse Resp B/P (MAP) Pulse Ox O2 O2 Flow FiO2 Time Delivery Rate 06/16/18 69 12:13 06/16/18 98.0 18 132/87 97 Room Air 11:00 (102) 06/14/18 2 06:47 Intake and Output 06/15/18 06/15/18 06/16/18 1515:00 23:00 07:00 IntakeIntake Total 1000 ml BalanceBalance 1000 ml Constitutional: alert, oriented Psych: no complaints, nl mood/affect Head: normocephalic, atraumatic Neck: supple; No jvd Respiratory: clear to auscultation; No crackles/rales Cardiovascular: regular rate and rhythm; No edema, No systolic murmur Gastrointestinal: soft, non-tender, distended Neurological: nl mental status, nl speech Results Result Diagram: 06/16/18 0620 06/16/18 0621 Results 24hrs Laboratory Tests Test 06/16/18 06:20 06/16/18 06:21 White Blood Count 7.4 Red Blood Count 4.50 L Hemoglobin 14.8 Hematocrit 43.7 Mean Corpuscular Volume 97.1 Mean Corpuscular Hemoglobin 32.9 Mean Corpuscular Hemoglobin Concent 33.9 Red Cell Distribution Width 12.3 Platelet Count 167 Mean Platelet Volume 10.1 Immature Granulocytes % 0.500 H Neutrophils % 61.9 Lymphocytes % 17.8 Monocytes % 11.8 H Eosinophils % 7.2 H Basophils % 0.8 Nucleated Red Blood Cells % 0.0 Immature Granulocytes # 0.040 H Neutrophils # 4.6 Lymphocytes # 1.3 Monocytes # 0.9 Eosinophils # 0.5 Basophils # 0.1 Nucleated Red Blood Cells # 0.0 Sodium Level 140 Potassium Level 3.6 Chloride Level 105 Carbon Dioxide Level 26 Anion Gap 9 Blood Urea Nitrogen 18 Creatinine 1.06 Est Glomerular Filtrat Rate mL/min > 60 Glucose Level 81 Calcium Level 9.6 Medications Medication Current Medications Aspirin (Aspirin) 81 mg DAILY PO Last administered on 06/16/18 08:33; Admin Dose 81 MG; Start 06/15/18 at 09:00 Atorvastatin Calcium (Lipitor) 80 mg QHS PO Last administered on 06/15/18at 20:59; Admin Dose 80 MG; Start 06/14/18 at 21:00 Clopidogrel Bisulfate (plaVIX) 75 mg DAILY PO Last administered on 06/16/18at 08:33; Admin Dose 75 MG; Start 06/15/18 at 09:00 Metoprolol Tartrate (Lopressor) 25 mg BID PO ; Start 06/14/18 at 21:00; Status Hold Pantoprazole (Protonix Tab) 40 mg DAILY@06 PO Last administered on 06/16/18at 05:31; Admin Dose 40 MG; Start 06/15/18 at 06:00 BERONICA TORRES Jun 16, 2018 15:40
--- NOTE | 2018-06-16 18:45 | PN ---
DATE: 06/15/2018 SUBJECTIVE: The patient was seen and evaluated. He is having improved deployment specialist in right upper extremity: We discussed the plan of care. OBJECTIVE: VITAL SIGNS: Temperature 98.2, pulse 65, respirations 19, blood pressure 113/63, saturations 96% on room air. GENERAL: Currently, in no distress. HEENT: Head is normocephalic. Pupils are equal and reactive. NECK: Supple. CHEST: Clear. CARDIOVASCULAR: S1, S2. No arrhythmias on tele. No murmurs. ABDOMEN: Soft, nontender. EXTREMITIES: Lower extremities: No edema. The patient is having improved deployment specialist in the arm but still quite weak. Left side is unremarkable. IMAGING: MRI was reviewed with the radiologist and there is concern for multiple small embolic phenomena. ASSESSMENT: 1. Acute multiple embolic strokes, recurrent, involving the left frontal gyri, caudate lobe and left temporal gyrus. This is recurrent. The patient had similar episode 3 weeks ago and recovered without residual paresis. 2. Supraclinoid moderate flow limiting carotid stenosis on the right side seen on CTA. 3. Hypertension with good control at this time. 4. Dyslipidemia on high dose statin. 5. History of gastroesophageal reflux disease. PLAN: I spoke extensively with vascular surgery. First of all, Dr. Hutchison at that time states the patient does not need vascular surgery intervention because there is no carotid stenosis that is significant in the neck. He did determine that if neurology felt the patient needed surgical intervention, we will have to talk to neuro-radiology or neurosurgery. Based on this, I spoke with neurology, Dr. Latia Askew. Dr. Askew does have concerns that the patient might not have an acute insult and the findings on MRI might be the same as what happened 3 weeks ago with some recrudescence. She would like to review the MRIs from 3 weeks ago and compare to determine her final recommendations. In the interim, we will continue high dose statin. Continue dual antiplatelet with aspirin and Plavix. Continue inpatient rehabilitation. If neurology determines that no further intervention is warranted at this time, the patient will be discharged home to the care of his family with home health for physical therapy. This was discussed with him in detail. Questions were answered. Dictated By: SUSSY MANE MD BA/NTS Conf#: [id number] DID#: [id number] CC: YELITZA HUTCHISON MD;*EndCC* MTDD
[2018-06-16] MEDS: ATORVASTATIN 80 MG TAB PO SCH (20:11)
[2018-06-17] VITALS (12 sets, daily range): BP systolic 109–133; BP diastolic 68–87; PULSE 67–90; RESP 18–20
[2018-06-17] MEDS: PANTOPRAZOLE (EC) 40 MG TAB PO SCH (05:20)
--- NOTE | 2018-06-17 07:00 | CONS ---
Assessment/Plan Assessment/Plan Hospital Course 67 M c/ reported recent stroke c/b R hemiparesis, who presents for evaluation of recurrent R arm and leg weakness....for which neurology is consulted.. MRI brain is notable for multiple punctate L hemispheric infarcts on DWI, without definitive ADC correlate. OSH MRI brain from May 2018 was reviewed...there is certainly an accumulation of ischemia since this exam was completed.. CTA H/N is notable for mild intracranial athero w/o significant extracranial ICA stenosis... TTE is unrevealing. P: OK to cont plavix, asa, lipitor daily for secondary stroke prevention for now Await ARIC Consider 30 day holter to eval for paroxysmal afib if the above is unrevealing or unavailable.. PT/OT/ST as necessary Other management per primary Will follow clinically Consultation Date/Type/Reason Admit Date/Time Jun 14, 2018 at 08:15 Type of Consult Neurology Reason for Consultation weakness Requesting Provider: SUSSY MANE Date/Time of Note DATE: 06/17/18 TIME: 07:00 24 HR Interval Summary Free Text/Dictation Continues acute care Exam Vital Signs Vitals Vital Signs Date Temp Pulse Resp B/P (MAP) Pulse Ox O2 O2 Flow FiO2 Time Delivery Rate 06/17/18 90 04:00 06/17/18 98.5 18 109/68 96 Room Air 03:50 (82) 06/14/18 2 06:47 Intake and Output 06/16/18 06/16/18 06/17/18 1515:00 23:00 07:00 IntakeIntake Total 1020 ml 240 ml OutputOutput Total 400 ml BalanceBalance 1020 ml -160 ml Exam PE: Gen Appearance: No Apparent Distress HEENT: Normocephalic Cardiovascular: Regular rate Abdomen: Soft Extremities: Dry NE: The patient was alert and oriented. Language was normal. Fund of knowledge was normal. Pupils were equal and reactive to light. There was no afferent pupillary defect. Visual khoury were normal. Funduscopic examination was limited. Extra-ocular movements were full. Ptosis was absent. There was no nystagmus. Facial sensation was normal. Face was symmetric with normal strength. Hearing was intact. Palate movements were normal. Neck strength was normal. There was normal tongue bulk and speed of movement. Tone was normal. Muscle bulk was normal. I did not see fasciculations. Arms and legs were mildly weak on the right. Vibration sensation was normal. Temperature and pinprick sensation was normal. Rapid alternating movements were normal. There was no dysmetria. There was no intention tremor. Gait was deferred due to bedrest. Arm and leg reflexes were 2+ and symmetric. Pompa's sign was absent. Plantar responses were flexor. COSTA RAPP Jun 17, 2018 07:00 RENATA HOOVER NP Jun 17, 2018 14:58
[2018-06-17] MEDS: CLOPIDOGREL 75 MG TAB PO SCH (08:06)
[2018-06-17] MEDS: ASPIRIN 81 MG TAB PO SCH (08:06)
--- NOTE | 2018-06-17 10:37 | PREAC ---
Date/Time of Note Date/Time of Note DATE: 06/17/18 TIME: 10:34 Anesthesia Eval and Record Evaluation Time Pre-Procedure Interview DATE: 06/17/18 TIME: 10:34 Age 67 Sex male NPO: 8 hrs Preoperative diagnosis recurrent acute embolic strokes Planned procedure ARIC Past Medical History Past Medical History: Includes Cardio: HTN, Dyslipidemia Pulm: Smoking Hx (quit 1988) Neuro: CVA (right side weakness in [place] 3 weeks ago), Other (R carotid stenosis) Hepatic: Hepatitis (Hep B on remission, completed treatment per patient ) GI: GERD (denies symptoms today) Surgery & Anesthesia Issues No known issue Meds Anticoagulation: Yes (ASA and Plavix) Beta Markell within 24 hr: Yes Reported Medications Clopidogrel Bisulfate (Clopidogrel) 75 Mg Tablet, 75 MG PO DAILY, #30 TAB 06/14/18 Aspirin* (Aspirin* Chew) 81 Mg Tab.chew, 81 MG PO DAILY, TAB.CHEW 06/14/18 Metoprolol Tartrate* (Lopressor*) 25 Mg Tab, 25 MG PO BID, #60 TAB 06/14/18 Atorvastatin Calcium* (Atorvastatin Calcium*) 20 Mg Tablet, 20 MG PO QHS, #30 TAB 06/14/18 Omeprazole* (Omeprazole*) 20 Mg Capsule.dr, 20 MG PO BID, #60 CAP 06/14/18 Current Medications Aspirin (Aspirin) 81 mg DAILY PO Last administered on 06/17/18at 08:06; Admin Dose 81 MG; Start 06/15/18 at 09:00 Atorvastatin Calcium (Lipitor) 80 mg QHS PO Last administered on 06/16/18at 20:11; Admin Dose 80 MG; Start 06/14/18 at 21:00 Clopidogrel Bisulfate (plaVIX) 75 mg DAILY PO Last administered on 06/17/18at 08:06; Admin Dose 75 MG; Start 06/15/18 at 09:00 Metoprolol Tartrate (Lopressor) 25 mg BID PO ; Start 06/14/18 at 21:00; Status Hold Pantoprazole (Protonix Tab) 40 mg DAILY@06 PO Last administered on 06/17/18at 05:20; Admin Dose 40 MG; Start 06/15/18 at 06:00 Meds reviewed: Yes Allergies Coded Allergies: Penicillins (Verified Allergy, Unknown, 06/14/18) amoxicillin (Verified Allergy, Unknown, 06/14/18) Allergies Reviewed: Yes Labs/Studies Labs Reviewed: Reviewed by anesthesiologist Result Diagram: 06/17/1826 06/17/18625 Laboratory Tests 06/17/18 06:26 test: N/A Studies: ECG (SR with 1st degree AVB) Pre-procedure Exam Last vitals Vital Signs Date Temp Pulse Resp B/P (MAP) Pulse Ox O2 O2 Flow FiO2 Time Delivery Rate 06/17/18 83 09:57 06/17/18 98.1 20 115/78 93 07:37 (90) 06/17/18 Room Air 03:50 06/14/18 2 06:47 Airway: Adequate mouth opening, Adequate thyromental dist Mallampati: Mallampati II Teeth: Normal Lung: Normal Heart: Normal ASA Physical Status ASA physical status: 3 Emergency: None Planned Anesthetic General/MAC: MAC, TIVA Planned Pain Management Parenteral pain med Pre-operative Attestations Prior to commencing anesthesia and surgery, the patient was re-evaluated, there was verification of: *The patient's identity *The results of appropriate recent lab work and preoperative vital signs *The above evaluation not changing prior to induction *Anesthetic plan, risk benefits, alternative and complications discussed with patient/family; questions answered; patient/family understands, accepts and wishes to proceed. ARACELIS HOWE Jun 17, 2018 10:37
--- NOTE | 2018-06-17 15:22 | RADRPT ---
Transesophageal Echo Report Patient Name: Kayden MIRZAent ID: [id number] : 1950 (67y 10m)Study Date: 06/17/2018 12:54:06 PM Gender: MAccession #: [id number] Tech: Lan Gresham [facility] Location: [facility] Ref.Physician: BERONICA TORRES Height(Cm): BSA: Weight(Kg): Quality: AdequateAccount #: Procedures: Transesophageal Echo Report: Transesophageal echocardiogram was performed. PREP: Patient received pre-procedure education; informed consent, baseline vital signs, and focused history and physical were obtained. SEDATION: Systemic sedation was achieved. ESOPHAGEAL INTUBATION: After suitable sedation, the probe was passed. Continuous pulse oximetry, electrocardiographic, and blood pressure monitoring were maintained throughout the procedure. Standard views were obtained in the transgastric, mid-esophageal, and basal planes at approximately 0, 30, 90, and 120 degrees. In addition, agitated saline study was performed. No immediate ARIC complications noted. Indications: R/o Emboli. Description of Procedure: Beronica Torres MD. Findings: Left Ventricle: Normal left ventricular systolic function. Normal left ventricular size. Ejection fraction is measured at 65 %. Right Ventricle: Normal right ventricular size. Normal right ventricular systolic function. Left Atrium: The left atrium is normal in size. Right Atrium: The right atrium is normal in size. Atrial Septum: No shunt by color Doppler and by bubble study. Mitral Valve: Trivial mitral regurgitation. Aortic Valve: Normal function of the aortic valve. Tricuspid Valve: Normal appearance of the tricuspid valve. There is mild tricuspid regurgitation. Pulmonic Valve: Normal pulmonic valve appearance and function. There is trace pulmonic regurgitation. Pericardium: Normal pericardium with no significant pericardial effusion. Aorta: Normal aortic root. Grade I atheromatous plaquing of the aorta. Pulmonary Veins: Pulmonary veins are normal in appearance. Atrial Appendage: Normal atrial appendage no thrombi or echogenic structure seen. Conclusions: No Vegetation, masses, or thrombi seen. Normal atrial appendage no thrombi or echogenic structure seen. No shunt by color Doppler and by bubble study. Normal left ventricular systolic function. Normal left ventricular size. Ejection fraction is measured at 65 %. Normal valvular function. Electronically Signed By: Beronica Torres 2018-06-17 15:20:51 PDT
--- NOTE | 2018-06-17 15:23 | CONS ---
Assessment/Plan Assessment/Plan Hospital Course (Demo Recall) Recurrent stroke with right sided deficits: Neurology eval and comparison of MRIs showed that he has new lesions on the left. CTA showed <50% carotid stenosis and vascular surgery did not think the pt needed intervention. Bubble study has been negative. No arrhythmias on tele. Also with palpitations, occult afib is in the differential. ARIC 06/17/18 completely unremarkable including normal appendage, no ASD/PFO, normal valves Bilateral carotid artery stenosis: <50% per CTA -?reconsider left carotid plaque as source of strokes -continue ASA, plavix, lipitor -outpt 30 day monitor to be arranged in my office after discharge Consultation Date/Type/Reason Admit Date/Time Jun 14, 2018 at 08:15 Initial Consult Date 06/16/18 Type of Consult Cardiology Requesting Provider: SUSSY MANE Date/Time of Note DATE: 06/17/18 TIME: 15:21 24 HR Interval Summary Free Text/Dictation ARIC unremarkable. No arrhythmias on tele Exam/Review of Systems Exam Vitals Vital Signs Date Temp Pulse Resp B/P (MAP) Pulse Ox O2 O2 Flow FiO2 Time Delivery Rate 06/17/18 98.0 78 18 122/78 97 Room Air 15:10 (93) 06/14/18 2 06:47 Intake and Output 06/16/18 06/16/18 06/17/18 1515:00 23:00 07:00 IntakeIntake Total 1020 ml 240 ml OutputOutput Total 400 ml BalanceBalance 1020 ml -160 ml Constitutional: alert, oriented Psych: no complaints, nl mood/affect Head: normocephalic, atraumatic Neck: supple; No jvd Respiratory: clear to auscultation; No crackles/rales Cardiovascular: regular rate and rhythm; No edema Gastrointestinal: soft, non-tender Neurological: nl mental status, nl speech Results Result Diagram: 06/17/18 0606/17/18 06 Results 24hrs Laboratory Tests Test 06/16/18 22:00 06/17/18 06:26 Urine Color STRAW Urine Clarity CLEAR Urine pH 6.0 Urine Specific [place] 1.003 Urine Ketones NEGATIVE Urine Nitrite NEGATIVE Urine Bilirubin NEGATIVE Urine Urobilinogen NEGATIVE Urine Leukocyte Esterase NEGATIVE Urine Hemoglobin NEGATIVE Urine Glucose NEGATIVE Urine Total Protein NEGATIVE Urine Opiates Screen Negative Urine Barbiturates Negative Urine Amphetamines Screen Negative Urine Benzodiazepines Screen Negative Urine Cocaine Screen Negative Urine Cannabinoids Negative White Blood Count 6.8 Red Blood Count 4.67 L Hemoglobin 15.0 Hematocrit 44.9 Mean Corpuscular Volume 96.1 Mean Corpuscular Hemoglobin 32.1 Mean Corpuscular Hemoglobin Concent 33.4 Red Cell Distribution Width 12.5 Platelet Count 164 Mean Platelet Volume 10.1 Immature Granulocytes % 0.300 Neutrophils % 58.4 Lymphocytes % 21.2 Monocytes % 12.1 H Eosinophils % 7.4 H Basophils % 0.6 Nucleated Red Blood Cells % 0.0 Immature Granulocytes # 0.020 Neutrophils # 4.0 Lymphocytes # 1.4 Monocytes # 0.8 Eosinophils # 0.5 Basophils # 0.0 Nucleated Red Blood Cells # 0.0 Sodium Level 142 Potassium Level 3.9 Chloride Level 107 Carbon Dioxide Level 28 Anion Gap 7 Blood Urea Nitrogen 21 H Creatinine 1.04 Est Glomerular Filtrat Rate mL/min > 60 Glucose Level 94 Calcium Level 9.7 Medications Medication Current Medications Aspirin (Aspirin) 81 mg DAILY PO Last administered on 06/17/18 08:06; Admin Dose 81 MG; Start 06/15/18 at 09:00 Atorvastatin Calcium (Lipitor) 80 mg QHS PO Last administered on 06/16/18at 20:11; Admin Dose 80 MG; Start 06/14/18 at 21:00 Clopidogrel Bisulfate (plaVIX) 75 mg DAILY PO Last administered on 06/17/18 08:06; Admin Dose 75 MG; Start 06/15/18 at 09:00 Metoprolol Tartrate (Lopressor) 25 mg BID PO ; Start 06/14/18 at 21:00; Status Hold Pantoprazole (Protonix Tab) 40 mg DAILY@06 PO Last administered on 06/17/18 05:20; Admin Dose 40 MG; Start 06/15/18 at 06:00 BERONICA TORRES Jun 17, 2018 15:23
--- NOTE | 2018-06-17 15:53 | PAC ---
Date/Time of Note Date/Time of Note DATE: 06/17/18 TIME: 15:53 Post-Anesthesia Notes Post-Anesthesia Note Last documented vital signs Vital Signs Date Temp Pulse Resp B/P (MAP) Pulse Ox O2 O2 Flow FiO2 Time Delivery Rate 06/17/18 98.0 78 18 122/78 97 Room Air 15:10 (93) 06/14/18 2 06:47 Activity: WNL Respiratory function: WNL Cardiovascular function: WNL Mental status: Baseline Pain reasonably controlled: Yes Hydration appropriate: Yes Nausea/Vomiting absent: No CATHERINE MEJIA MD Jun 17, 2018 15:53
--- NOTE | 2018-06-17 19:07 | CONS ---
Assessment/Plan Assessment/Plan Assessment/Plan (Daily) CVA Carotid stenosis less than 50% on CT angiogram not hemodynamically significant Continue antiplatelets Follow-up carotid ultrasound regularly Consultation Date/Type/Reason Admit Date/Time Jun 14, 2018 at 08:15 Date of Consultation: Jun 17, 2018 Type of Consult Vascular surgery Reason for Consultation Carotid stenosis Date/Time of Note DATE: 06/17/18 TIME: 19:02 Hx of Present Illness 67-year-old male with a history of hypertension hyperlipidemia patient has had a recent stroke beginning of May being admitted because of further neurological deficits was found to have less than 50% stenosis in the carotid arteries based on the CT angiogram he is currently on aspirin and is recovering from his stroke Respiratory: no complaints Cardiovascular: no complaints Gastrointestinal: no complaints Genitourinary: no complaints Musculoskeletal: no complaints Skin: no complaints Neurologic: no complaints Endocrine: no complaints Past Medical History Home Meds Reported Medications Clopidogrel Bisulfate (Clopidogrel) 75 Mg Tablet, 75 MG PO DAILY, #30 TAB 06/14/18 Aspirin* (Aspirin* Chew) 81 Mg Tab.chew, 81 MG PO DAILY, TAB.CHEW 06/14/18 Metoprolol Tartrate* (Lopressor*) 25 Mg Tab, 25 MG PO BID, #60 TAB 06/14/18 Atorvastatin Calcium* (Atorvastatin Calcium*) 20 Mg Tablet, 20 MG PO QHS, #30 TAB 06/14/18 Omeprazole* (Omeprazole*) 20 Mg Capsule.dr, 20 MG PO BID, #60 CAP 06/14/18 Medications Current Medications Aspirin (Aspirin) 81 mg DAILY PO Last administered on 06/17/18at 08:06; Admin Dose 81 MG; Start 06/15/18 at 09:00 Atorvastatin Calcium (Lipitor) 80 mg QHS PO Last administered on 06/16/18at 20:11; Admin Dose 80 MG; Start 06/14/18 at 21:00 Clopidogrel Bisulfate (plaVIX) 75 mg DAILY PO Last administered on 06/17/18at 08: 06; Admin Dose 75 MG; Start 06/15/18 at 09:00 Metoprolol Tartrate (Lopressor) 25 mg BID PO ; Start 06/14/18 at 21:00; Status Hold Pantoprazole (Protonix Tab) 40 mg DAILY@06 PO Last administered on 06/17/18at 05:20; Admin Dose 40 MG; Start 06/15/18 at 06:00 Allergies: Coded Allergies: Penicillins (Verified Allergy, Unknown, 06/14/18) amoxicillin (Verified Allergy, Unknown, 06/14/18) Social History Alcohol Use: none Smoking Status: Former smoker Drug Use: none Exam/Review of Systems Exam Vitals Vital Signs Date Temp Pulse Resp B/P (MAP) Pulse Ox O2 O2 Flow FiO2 Time Delivery Rate 06/17/18 70 16:39 06/17/18 98.0 18 122/78 97 Room Air 15:10 (93) 06/14/18 2 06:47 Intake and Output 06/16/18 06/16/18 06/17/18 1515:00 23:00 07:00 IntakeIntake Total 1020 ml 240 ml OutputOutput Total 400 ml BalanceBalance 1020 ml -160 ml ENMT: nl external ears & nose, nl lips & teeth, nl nasal mucosa & septum Neck: supple, non-tender Respiratory: clear to auscultation, normal air movement Cardiovascular: regular rate and rhythm, nl pulses Gastrointestinal: soft, nl liver, spleen, non-tender Extremities: normal pulses Neurological: TRAIN OPERATOR II-XII intact, nl mental status, nl speech, nl strength Results Result Diagram: 06/17/1862506/17/18 06 Results 24hrs Laboratory Tests Test 06/16/18 22:00 06/17/18 06:26 Urine Color STRAW Urine Clarity CLEAR Urine pH 6.0 Urine Specific [place] 1.003 Urine Ketones NEGATIVE Urine Nitrite NEGATIVE Urine Bilirubin NEGATIVE Urine Urobilinogen NEGATIVE Urine Leukocyte Esterase NEGATIVE Urine Hemoglobin NEGATIVE Urine Glucose NEGATIVE Urine Total Protein NEGATIVE Urine Opiates Screen Negative Urine Barbiturates Negative Urine Amphetamines Screen Negative Urine Benzodiazepines Screen Negative Urine Cocaine Screen Negative Urine Cannabinoids Negative White Blood Count 6.8 Red Blood Count 4.67 L Hemoglobin 15.0 Hematocrit 44.9 Mean Corpuscular Volume 96.1 Mean Corpuscular Hemoglobin 32.1 Mean Corpuscular Hemoglobin Concent 33.4 Red Cell Distribution Width 12.5 Platelet Count 164 Mean Platelet Volume 10.1 Immature Granulocytes % 0.300 Neutrophils % 58.4 Lymphocytes % 21.2 Monocytes % 12.1 H Eosinophils % 7.4 H Basophils % 0.6 Nucleated Red Blood Cells % 0.0 Immature Granulocytes # 0.020 Neutrophils # 4.0 Lymphocytes # 1.4 Monocytes # 0.8 Eosinophils # 0.5 Basophils # 0.0 Nucleated Red Blood Cells # 0.0 Sodium Level 142 Potassium Level 3.9 Chloride Level 107 Carbon Dioxide Level 28 Anion Gap 7 Blood Urea Nitrogen 21 H Creatinine 1.04 Est Glomerular Filtrat Rate mL/min > 60 Glucose Level 94 Calcium Level 9.7 Medications Medication Current Medications Aspirin (Aspirin) 81 mg DAILY PO Last administered on 06/17/18 08:06; Admin Dose 81 MG; Start 06/15/18 at 09:00 Atorvastatin Calcium (Lipitor) 80 mg QHS PO Last administered on 06/16/18at 20:11; Admin Dose 80 MG; Start 06/14/18 at 21:00 Clopidogrel Bisulfate (plaVIX) 75 mg DAILY PO Last administered on 06/17/18 08:06; Admin Dose 75 MG; Start 06/15/18 at 09:00 Metoprolol Tartrate (Lopressor) 25 mg BID PO ; Start 06/14/18 at 21:00; Status Hold Pantoprazole (Protonix Tab) 40 mg DAILY@06 PO Last administered on 06/17/18at 05:20; Admin Dose 40 MG; Start 06/15/18 at 06:00 YELITZA LEI MD Jun 17, 2018 19:07
[2018-06-17] MEDS: ATORVASTATIN 80 MG TAB PO SCH (21:33)
[2018-06-18] VITALS: PULSE 75
[2018-06-18 03:43] VITALS: BP 131/76; PULSE 76; RESP 18
[2018-06-18 04:00] VITALS: PULSE 79
[2018-06-18] MEDS: PANTOPRAZOLE (EC) 40 MG TAB PO SCH (05:11)
[2018-06-18 07:22] VITALS: BP 138/91; PULSE 78; RESP 18
--- NOTE | 2018-06-18 07:49 | CONS ---
Assessment/Plan Assessment/Plan Hospital Course 67 M c/ reported recent stroke c/b R hemiparesis, who presents for evaluation of recurrent R arm and leg weakness....for which neurology is consulted.. MRI brain is notable for multiple punctate L hemispheric infarcts on DWI, without definitive ADC correlate. OSH MRI brain from May 2018 was reviewed...there is certainly an accumulation of ischemia since this exam was completed.. CTA H/N is notable for mild intracranial athero w/o significant extracranial ICA stenosis... TTE is unrevealing. ARIC was the same P: OK to cont plavix, asa, lipitor daily for secondary stroke prevention for now 30 day holter to eval for paroxysmal afib, as able PT/OT/ST as necessary Other management per primary Neurologically cleared for d/c Consultation Date/Type/Reason Admit Date/Time Jun 14, 2018 at 08:15 Type of Consult Neurology Reason for Consultation weakness Requesting Provider: SUSSY MANE Date/Time of Note DATE: 06/18/18 TIME: 07:49 24 HR Interval Summary Free Text/Dictation Continues acute care. S/p ARIC. Pt states that his sxs are improving Exam Vital Signs Vitals Vital Signs Date Temp Pulse Resp B/P (MAP) Pulse Ox O2 O2 Flow FiO2 Time Delivery Rate 06/18/18 98.4 78 18 138/91 97 Room Air 07:22 (107) Intake and Output 06/17/18 06/17/18 06/18/18 1515:00 23:00 07:00 IntakeIntake Total 420 ml 450 ml BalanceBalance 420 ml 450 ml Exam PE: Gen Appearance: No Apparent Distress HEENT: Normocephalic Cardiovascular: Regular rate Abdomen: Soft Extremities: Dry NE: The patient was alert and oriented. Language was normal. Fund of knowledge was normal. Pupils were equal and reactive to light. There was no afferent pupillary defect. Visual khoury were normal. Funduscopic examination was limited. Extra-ocular movements were full. Ptosis was absent. There was no nystagmus. Facial sensation was normal. Face was symmetric with normal strength. Hearing was intact. Palate movements were normal. Neck strength was normal. There was normal tongue bulk and speed of movement. Tone was normal. Muscle bulk was normal. I did not see fasciculations. Arms and legs were mildly weak on the right, though improved. Vibration sensation was normal. Temperature and pinprick sensation was normal. Rapid alternating movements were normal. There was no dysmetria. There was no intention tremor. Gait was deferred due to bedrest. Arm and leg reflexes were 2+ and symmetric. Pompa's sign was absent. Plantar responses were flexor. COSTA RAPP Jun 18, 2018 07:49 RENATA HOOVER NP Jun 18, 2018 12:58
[2018-06-18 08:12] VITALS: PULSE 71
[2018-06-18] MEDS: CLOPIDOGREL 75 MG TAB PO SCH (08:16)
[2018-06-18] MEDS: ASPIRIN 81 MG TAB PO SCH (08:16)
--- NOTE | 2018-06-18 11:39 | DS ---
Date/Time of Note Date/Time of Note DATE: 06/18/18 TIME: 11:36 Discharge Summary Admission/Discharge Info Admit Date/Time Jun 14, 2018 at 08:15 Discharge Date/Time Discharge Diagnosis 67-year-old male who presented with right-sided hemiparesis managed as follows: 1. Acute CVA, recurrent, with right-sided paresis improving: -MRI showed multiple small embolic strokes, more than previous -ARIC was unrevealing. No arrythmias on in-house tele x at least 48hrs -30-day Holter to evaluate for paroxysmal atrial fibrillation to be set up by PCP / cardio outpatient -Continue dual antiplatelets and statin therapy 2. L sided carotid stenosis: -Patient has moderate right-sided flow-limiting stenosis in the supraclinoid portion of internal carotid artery, but no hemodynamically significant stenosis in the neck portion. -Based on this, vascular surgery has determined that patient does not need any surgical intervention from his standpoint. -He stated that if neurology felt vascular intervention was necessary, patient will need either neurosurgery or neuroradiology. -Spoke with neurology, the no surgical intervention is required at this time for findings described above. 3. HTN: good control 4. HLD: continue statin 5. GERD . Patient Condition: Stable Hx of Present Illness 67-year-old male who presented to the emergency room, last known time of being fully well was 11 PM last night and patient presented at about 530 this morning with right-sided paresis. The patient was activated as a code stroke and he was evaluated by tele-neurology and unfortunately was not a candidate for TPA. A CT angiogram of the head and neck done in the emergency room did show left ICA with 50% stenosis and for that tele-neurology does recommend vascular surgery evaluation. The patient recently was in [place] about 3 weeks ago and at that time had similar symptoms and was diagnosed with an acute stroke. He but his symptoms resolved completely and he was maintained on aspirin, Plavix and high-dose statin. At this time, his lower extremity has regained function but he still weaker on the right than the left leg, but he continues to have significant paresis in the right upper extremity. There is no fever, there is no chest pain, there is no abdominal pain, there was no passing out or hitting of his head, no neck pain, no lower extremity swelling or shortness of breath. Hospital Course 67-year-old male who had presented to our facility with right-sided hemiparesis after he had had a similar episode 3 weeks prior. He was diagnosed with a recurrent left-sided CVA by MRI, and was seen in-house by neurology. It was determined that this strokes where embolic in origin, CT angiogram did not show significant carotid stenosis in the neck but there was plaques in the bilateral cavernous and supraclinoid ICA arteries resulting in moderate right and only mild left flow-limiting stenosis. Neurology final recommendations were Dilantin platelet therapy but also that patient is to undergo a ARIC and possible 24-hour Holter monitoring for at least 30 days to ensure no paroxysmal atrial fibrillation. He underwent an unrevealing ARIC June 17, 2018. Holter monitor would have to be done as outpatient, this was communicated to the patient and he verbalized understanding. He assures me he has an upcoming appointment with his outpatient alarm installation technician. Patient was offered in-house acute rehabilitation but he declined. Will be discharged home to the care of his family. . Home Meds Reported Medications Clopidogrel Bisulfate (Clopidogrel) 75 Mg Tablet, 75 MG PO DAILY, #30 TAB 06/14/18 Aspirin* (Aspirin* Chew) 81 Mg Tab.chew, 81 MG PO DAILY, TAB.CHEW 06/14/18 Metoprolol Tartrate* (Lopressor*) 25 Mg Tab, 25 MG PO BID, #60 TAB 06/14/18 Atorvastatin Calcium* (Atorvastatin Calcium*) 20 Mg Tablet, 20 MG PO QHS, #30 TAB 06/14/18 Omeprazole* (Omeprazole*) 20 Mg Capsule., 20 MG PO BID, #60 CAP 06/14/18 Follow-up Plan 30-day Holter to evaluate for paroxysmal atrial fibrillation to be set up by PCP / cardio outpatient Primary Care Provider Care Physician No Primary Time spent on discharge: > 30 minutes SUSSY MANE Jun 18, 2018 11:39
[2018-06-18 12:15] VITALS: PULSE 73
--- NOTE | 2018-06-18 13:40 | CONS ---
Assessment/Plan Assessment/Plan Hospital Course (Demo Recall) Recurrent stroke with right sided deficits: Neurology eval and comparison of MRIs showed that he has new lesions on the left. CTA showed <50% carotid stenosis and vascular surgery has seen the pt and does not think the pt needs intervention. Bubble study has been negative. No arrhythmias on tele. Also with palpitations, occult afib is in the differential. ARIC 06/17/18 completely unremarkable including normal appendage, no ASD/PFO, normal valves Bilateral carotid artery stenosis: <50% per CTA -continue ASA, plavix, lipitor -outpt 30 day monitor to be arranged in my office after discharge Consultation Date/Type/Reason Admit Date/Time Jun 14, 2018 at 08:15 Initial Consult Date 06/16/18 Type of Consult Cardiology Requesting Provider: SUSSY MANE Date/Time of Note DATE: 06/18/18 TIME: 13:39 24 HR Interval Summary Free Text/Dictation No events. Remains in sinus. Seen by Dr. Hutchison. Exam/Review of Systems Vital Signs Vitals Vital Signs Date Temp Pulse Resp B/P (MAP) Pulse Ox O2 O2 Flow FiO2 Time Delivery Rate 06/18/18 73 12:15 06/18/18 98.4 18 138/91 97 Room Air 07:22 (107) Intake and Output 06/17/18 06/17/18 06/18/18 1515:00 23:00 07:00 IntakeIntake Total 420 ml 450 ml BalanceBalance 420 ml 450 ml Exam Constitutional: alert, oriented Psych: no complaints, nl mood/affect Head: normocephalic, atraumatic Neck: supple; No jvd Respiratory: clear to auscultation; No crackles/rales Cardiovascular: regular rate and rhythm; No edema Neurological: nl mental status, nl speech Labs Result Diagram: 06/17/1862506/17/18625 Medications Medications Current Medications Aspirin (Aspirin) 81 mg DAILY PO Last administered on 06/18/18at 08:16; Admin Dose 81 MG; Start 06/15/18 at 09:00 Atorvastatin Calcium (Lipitor) 80 mg QHS PO Last administered on 06/17/18at 2 1:33; Admin Dose 80 MG; Start 06/14/18 at 21:00 Clopidogrel Bisulfate (plaVIX) 75 mg DAILY PO Last administered on 06/18/18at 08:16; Admin Dose 75 MG; Start 06/15/18 at 09:00 Metoprolol Tartrate (Lopressor) 25 mg BID PO ; Start 06/14/18 at 21:00; Status Hold Pantoprazole (Protonix Tab) 40 mg DAILY@06 PO Last administered on 06/18/18at 05:11; Admin Dose 40 MG; Start 06/15/18 at 06:00 BERONICA TORRES Jun 18, 2018 13:40
--- NOTE | 2018-06-21 09:39 | EN ---
Date/Time of Note Date/Time of Note DATE: 06/21/18 TIME: 09:35 Event Note Medicine Medicine Event Note PROGRESS NOTE DATE OF SERVICE: 06/17/18 SUBJECTIVE: for ARIC today, continues to have improvement in RUE function OBJECTIVE: Vital Signs Date Temp Pulse Resp B/P (MAP) Pulse Ox O2 O2 Flow FiO2 Time Delivery Rate 06/17/18 90 04:00 06/17/18 98.5 18 109/68 96 Room Air 03:50 (82) 06/14/18 2 06:47 Intake and Output 06/16/18 06/16/18 06/17/18 1515:00 23:00 07:00 IntakeIntake Total 1020 ml 240 ml OutputOutput Total 400 ml BalanceBalance 1020 ml -160 ml Constitutional: alert, oriented Psych: no complaints, nl mood/affect Head: normocephalic, atraumatic Neck: supple; No jvd Respiratory: clear to auscultation; No crackles/rales Cardiovascular: regular rate and rhythm; No edema Gastrointestinal: soft, non-tender Neurological: nl mental status, nl speech Results Result Diagram: 06/17/18 0626 06/17/18 06 Results 24hrs Laboratory Tests Test 06/16/18 22:00 06/17/18 06:26 Urine Color STRAW Urine Clarity CLEAR Urine pH 6.0 Urine Specific [place] 1.003 Urine Ketones NEGATIVE Urine Nitrite NEGATIVE Urine Bilirubin NEGATIVE Urine Urobilinogen NEGATIVE Urine Leukocyte Esterase NEGATIVE Urine Hemoglobin NEGATIVE Urine Glucose NEGATIVE Urine Total Protein NEGATIVE Urine Opiates Screen Negative Urine Barbiturates Negative Urine Amphetamines Screen Negative Urine Benzodiazepines Screen Negative Urine Cocaine Screen Negative Urine Cannabinoids Negative White Blood Count 6.8 Red Blood Count 4.67 L Hemoglobin 15.0 Hematocrit 44.9 Mean Corpuscular Volume 96.1 Mean Corpuscular Hemoglobin 32.1 Mean Corpuscular Hemoglobin Concent 33.4 Red Cell Distribution Width 12.5 Platelet Count 164 Mean Platelet Volume 10.1 Immature Granulocytes % 0.300 Neutrophils % 58.4 Lymphocytes % 21.2 Monocytes % 12.1 H Eosinophils % 7.4 H Basophils % 0.6 Nucleated Red Blood Cells % 0.0 Immature Granulocytes # 0.020 Neutrophils # 4.0 Lymphocytes # 1.4 Monocytes # 0.8 Eosinophils # 0.5 Basophils # 0.0 Nucleated Red Blood Cells # 0.0 Sodium Level 142 Potassium Level 3.9 Chloride Level 107 Carbon Dioxide Level 28 Anion Gap 7 Blood Urea Nitrogen 21 H Creatinine 1.04 Est Glomerular Filtrat Rate mL/min > 60 Glucose Level 94 Calcium Level 9.7 Medications Medication Current Medications Aspirin (Aspirin) 81 mg DAILY PO Last administered on 06/17/18at 08:06; Admin Dose 81 MG; Start 06/15/18 at 09:00 Atorvastatin Calcium (Lipitor) 80 mg QHS PO Last administered on 06/16/18at 20:11; Admin Dose 80 MG; Start 06/14/18 at 21:00 Clopidogrel Bisulfate (plaVIX) 75 mg DAILY PO Last administered on 06/17/18at 08:06; Admin Dose 75 MG; Start 06/15/18 at 09:00 Metoprolol Tartrate (Lopressor) 25 mg BID PO ; Start 06/14/18 at 21:00; Status Hold Pantoprazole (Protonix Tab) 40 mg DAILY@06 PO Last administered on 06/17/18at 05: 20; Admin Dose 40 MG; Start 06/15/18 at 06:00 Assessment and plan: 67-year-old male who presented with right-sided hemiparesis managed as follows: 1. Acute CVA, recurrent, with right-sided paresis improving: -MRI showed multiple small embolic strokes. -Neurology compared outside hospital MRI brain from May, with the one that was done here, it was determined that there is certainly an accumulation of ischemia since then. They recommended ARIC and possible 30-day Holter to evaluate for paroxysmal atrial fibrillation if ARIC was unrevealing. -Cardiology consultation has been obtained. -Continue dual antiplatelets and statin therapy 2. L sided carotid stenosis: -Patient has moderate right-sided flow-limiting stenosis in the supraclinoid portion of internal carotid artery, but no hemodynamically significant stenosis in the neck portion. -Based on this, vascular surgery has determined that patient does not need any surgical intervention from his standpoint. -He stated that if neurology felt vascular intervention was necessary, patient will need either neurosurgery or neuroradiology. -Spoke with neurology, the no surgical intervention is required at this time for findings described above. 3. HTN: good control 4. HLD: continue statin 5. GERD -Continue inpatient rehab, ARIC today, appreciate all consults SUSSY MANE Jun 21, 2018 09:39
== END 2018-06-18 14:30 | disposition home or self-care (01) | DRG 65 ==
LOC: EDBD 06:08 → E/R 06:08 → TEL 08:15
PROVIDERS: ADMIT Family Medicine; ATTEND Family Medicine
PROC: B24BZZ4 Ultrasonography of Heart with Aorta, Transesophageal (ICD-10-PCS; principal; 2018-06-17 13:00)
DX: I63.131 Cerebral infarction due to embolism of right carotid artery (principal); G81.91 Hemiplegia, unspecified affecting right dominant side; E78.5 Hyperlipidemia, unspecified; I10 Essential (primary) hypertension; K21.9 Gastro-esophageal reflux disease without esophagitis; R29.703 NIHSS score 3; Z79.82 Long term (current) use of aspirin; Z79.02 Long term (current) use of antithrombotics/antiplatelets
CPT/HCPCS: 36415; 70450; 70496; 70498; 70551; 71045; 80048; 80061; 80307; 81003; 82550; 82553; 82962; 83036; 83735; 84100; 84443; 84484; 85025; 85610; 85730; 92610; 93005; 93306; 93312; 93320; 93325; 93970; 97110; 97116; 97163; 97167; Q9967

== ENCOUNTER 2018-06-27 22:59 | Inpatient (IN) | payer MEDICARE, BC ==
[~2018-06-27] VITALS: Ht 170.2 cm; Wt 77.4 kg
[~2018-06-27 22:59] MED LIST: ASPI-903 PO; ATOR20TA38 PO; CLOP75TA27 PO; METO-448 PO; OMEP20CA16 PO
[2018-06-27] MEDS ORDERED: IOHEXOL 100 ML ONE (23:10)
[2018-06-27] MEDS ORDERED: SOD CHLORIDE 0.9% 100 ML ONE (23:10)
--- NOTE | 2018-06-27 23:59 | HP ---
Date/Time of Note Date/Time of Note DATE: 06/27/18 TIME: 23:59 Assessment/Plan VTE Prophylaxis Pharmacological prophylaxis: heparin Lines/Catheters IV [facility]from [facility] [place] Assessment/Plan Assessment/Plan 1. Acute on subacute CVA: Status post TPA -Patient was discharged from here 2 weeks ago after admitted for right-sided weakness secondary to ischemic embolic stroke. Now returning with worsening weakness. CT without acute findings. CT Angio of the head and neck without any hemodynamic significant stenosis. Patient is now status post TPA -ICU admission -Follow post TPA protocol -Neurology consult -MRI of the brain 2. Hypertension: BP within goal 3. Dyslipidemia: Start statin 24 hours after TPA Result Diagram: 06/27/18 2308 06/27/18 2308 Results 24hrs Laboratory Tests Test 06/27/18 23:05 06/27/18 23:08 Bedside Glucose 113 White Blood Count 6.0 Red Blood Count 4.23 L Hemoglobin 13.9 L Hematocrit 40.8 L Mean Corpuscular Volume 96.5 Mean Corpuscular Hemoglobin 32.9 Mean Corpuscular Hemoglobin Concent 34.1 Red Cell Distribution Width 12.1 Platelet Count 164 Mean Platelet Volume 9.7 Immature Granulocytes % 0.300 Neutrophils % 46.3 Lymphocytes % 35.7 Monocytes % 12.0 H Eosinophils % 5.0 Basophils % 0.7 Nucleated Red Blood Cells % 0.0 Immature Granulocytes # 0.020 Neutrophils # 2.8 Lymphocytes # 2.1 Monocytes # 0.7 Eosinophils # 0.3 Basophils # 0.0 Nucleated Red Blood Cells # 0.0 Prothrombin Time 12.3 Prothrombin Time Ratio 1.0 INR International Normalized Ratio 0.90 Activated Partial Thromboplast Time 28.6 Sodium Level 139 Potassium Level 4.1 Chloride Level 104 Carbon Dioxide Level 27 Anion Gap 8 Blood Urea Nitrogen 19 Creatinine 1.24 Est Glomerular Filtrat Rate mL/min 58 L Glucose Level 111 Hemoglobin A1c 5.5 Calcium Level 9.5 Total Bilirubin 0.7 Direct Bilirubin 0.00 Indirect Bilirubin 0.7 Aspartate Amino Transf (AST/SGOT) 29 Alanine Aminotransferase (ALT/SGPT) 28 Alkaline Phosphatase 106 Creatine Kinase 62 Creatine Kinase Index 0.7 Creatinine Kinase MB (Mass) 0.44 Troponin I < 0.012 Total Protein 7.5 Albumin 4.3 Globulin 3.20 Albumin/Globulin Ratio 1.34 Triglycerides Level 105 Cholesterol Level 139 LDL Cholesterol, Calculated 70 HDL Cholesterol 48 Cholesterol/HDL Ratio 2.8 Ethyl Alcohol Level < 10.0 H HPI/ROS Admit Date/Time Admit Date/Time Hx of Present Illness This is a 64-year-old male with a history of hypertension, dyslipidemia, recently diagnosed ischemic embolic stroke who presented to ER complaining of worsening right-sided weakness. Patient was discharged from here about 2 weeks ago after he was admitted for right-sided weakness secondary to CVA. When patient presented to ER, CT was negative for acute findings. Angio of the head and neck without hemodynamically significant stenosis. He was evaluated by tele-neurologist and is now status post TPA. PMH/Family/Social Past Medical History Past Surgical History Past Surgical Hx: other (See HPI) Family History Significant Family History: heart disease Social History Alcohol Use: none Smoking Status: Never smoker Drug Use: none Exam Constitutional: other (Intubated. Looks comfortable on a vent) Head: normocephalic, atraumatic Respiratory: diminished breath sounds Cardiovascular: irregular rhythm Gastrointestinal: soft Extremities: normal pulses Medications Current Medications Alteplase, Recombinant (Activase) 7.3 mg BOLUS OVER 1 MIN ONCE IV* ; Start 06/28/18 at 00:00; Stop 06/28/18 at 00:01 Alteplase, Recombinant (Activase) 66.1 mg ISCHEMIC STROKE ONCE IV* ; Start 06/28/18 at 00:00; Stop 06/28/18 at 00:01 Sodium Chloride 50 ml @ 0 mls/hr FLUSH AFTER TPA ONCE IV ; Start 06/28/18 at 00:00; Stop 06/28/18 at 00:01 Coded Allergies: Penicillins (Verified Allergy, Unknown, 06/14/18) amoxicillin (Verified Allergy, Unknown, 06/14/18) Social History Smoking Status: Never smoker Exam/Review of Systems Vital Signs Vitals Vital Signs Date Temp Pulse Resp B/P (MAP) Pulse Ox O2 O2 Flow FiO2 Time Delivery Rate 06/27/18 92 14 135/89 99 Room Air 23:33 (104) 06/27/18 97.9 23:15 WILBER FUCHS MD Jun 27, 2018 23:59
[2018-06-28] VITALS (24 sets, daily range): BP systolic 100–147; BP diastolic 72–97; PULSE 59–77; RESP 11–22; Ht 170.2 cm; Wt 77.4 kg
[2018-06-28] MEDS ORDERED: ALTEPLASE 100 MG INJ IV* ONE
[2018-06-28] MEDS ORDERED: ALTEPLASE (tPA) 1 MG/ML BOLUS SYG IV* ONE
[2018-06-28] MEDS ORDERED: SOD CHLORIDE 0.9% 50 ML IV ONE
--- NOTE | 2018-06-28 00:36 | STROKE ---
Date/Time of Note Date/Time of Note DATE: 06/28/18 TIME: 00:19 Patient Information General Patient location: emergency Arrival Date Age 67 Gender male Weight 81.6 kg POC Glucose Glucose Result Bedside Glucose - 72 Hours Test 06/27/18 23:05 Bedside Glucose 113 mg/dL (70-220) Vital Signs Vital Signs Vital Signs Date Temp Pulse Resp B/P (MAP) Pulse Ox O2 O2 Flow FiO2 Time Delivery Rate 06/27/18 92 14 135/89 99 Room Air 23:33 (104) 06/27/18 97.9 23:15 Patient History Past Medical History Stroke, Hypertension, Hypercholesterolemia Current Medications Anti-Platelets: ASA 81mg, Plavix (Clopidogrel) Allergies: Coded Allergies: Penicillins (Verified Allergy, Unknown, 06/14/18) amoxicillin (Verified Allergy, Unknown, 06/14/18) Labs Coagulation Labs: Coagulation Test 06/27/18 23:08 Activated Partial Thromboplast Time 28.6 Sec (23.0-35.0) History & Physical Patient History Notes Pt Hx Reviewed History of Present Illness This is a 67 yo M with HTN, HL, recently admitted and discharged for embolic cryptogenic strokes who now returns with recurrent right sided weakness with acute onset at about 10PM 06/27/18. The patient states that this is an acute worsening of his previous baseline. Of note, he recently underwent a comprehensive stroke workup, including TTE/ARIC, and this returned unremarkable. He was discharged on dual antiplatelets with plans for an event monitor. The patient denies recent illness, new medications. No chest palpitations or headaches. Review of Systems All Other Systems: Reviewed and Negative NIH Stroke Scale NIH Stroke Scale [id number] Hemianopia Cddou6Ch Right: Fvmkm4s Pakur4t Date/Time Recorded DATE: 06/27/18 TIME: 10:57PM Submitted By Jose A Tran t-PA Imaging Review Imaging Reviewed: Yes Date/Time Imaging Reviewed DATE: 06/28/18 TIME: 00:19 Inclusion/Exclusion Criteria reviewed with ER staff. CTH negative for bleed, measurable clinical deficit with LKWT<4.5h. No therapeutic anticoagulation. Low NIHSS and CT without large territorial stroke. t-PA Administration Recommendation: Yes Weight 81.6 kg t-PA Recommendation Date/Time recommended at 11:10 PM on 06/27/18 Recommedation submitted by Jose A Tran Recommendations Impression [id number] Cause: Kkuxf0s Embolism Diagnosis This is a 67 yo M with vascular risk factors, recently discharged at the [facility] of this month for an acute embolic appearing cryptogenic stroke involving the left MCA territory, who now returns with acute worsening of his stroke symptoms. NIHSS was 3 and CTH reported negative by the ER provider for acute processes including no bleed. LKWT 10p. THE RISKS and BENEFITS AND ALTERNATIVES OF ALTEPLASE ADMINISTRATION WERE DISCUSSED WITH THE PATIENT AND AVAILABLE FAMILY. Alternatives for treatment; including not receiving alteplase therapy; were offered. The patient and family were afforded the opportunity to ask questions regarding treatment options and anticipated care. All questions were addressed prior to initiating therapy. I explained that given the measurable deficit today involving his dominant side/hand, the benefit of TPA likely exceeds the risk of bleeding and worsening stroke progression. The patient acknowledged the above and agreed with treatment. I reviewed clinical precautions with the patient after receiving TPA, including new headaches or worsening stroke symptoms. Recommendation 1) Admission to ICU for post-TPA precautions/monitoring. 2) Neurology consultation to assist with recurrent stroke workup. 3) repeat CTH in 24h post tpa to evaluate for hemorrhage. 4) hypercoagulable workup if not completed during last admission. [id number] Post t-PA Order [id number] Document q15 min vitals recommendation: Document q15 min neuro checks Refer to t-PA Order Sets [id number] Diagnostic Labs: [id number] Lipid Proile Hgb A1C CMP CBC w/Diff Urine Drug Screen [id number] Diagnostic Workup: [id number] Refer to t-PA Order Sets [id number] Therapy: Oghrx7i Physical Therapy Speech Therapy [id number] Recommendations: Chrbe4f Pnumatic Compression Devices t-PA Administration Record t-PA Administration t-PA Administered Time: 00:30 06/28/18 JOSE A TRAN MD Jun 28, 2018 00:31
[2018-06-28] MEDS ORDERED: ALBUTEROL/IPRATROPIUM (NEB) 3 ML AMP NEB PRN (01:00)
[2018-06-28] MEDS ORDERED: ACETAMINOPHEN 650MG/20.3ML CUP PO PRN (01:00)
[2018-06-28] MEDS ORDERED: ONDANSETRON 4 MG INJ IV PRN (01:00)
[2018-06-28] MEDS ORDERED: ACETAMINOPHEN 325 MG TAB PO PRN (01:00)
--- NOTE | 2018-06-28 01:21 | ERD ---
ER Documentation Chief Complaint Chief Complaint dizziness and right arm numbness, right arm &leg weakness since 2214. HPI This is a 67-year-old male who comes in with complaints of arm numbness in his right and leg numbness in his right proximally 45 minutes prior to arrival. Patient has history of previous stroke about 1 week ago but did not receive TPA. He was thought to be embolic in nature. Said the symptoms started while he was watching television. Denies any dysarthria. Code stroke called immediately. I called at 2300. Telemetry neurology called at 2305 ROS All systems reviewed and are negative except as per history of present illness. Medications Home Meds Reported Medications Clopidogrel Bisulfate (Clopidogrel) 75 Mg Tablet, 75 MG PO DAILY, #30 TAB 06/14/18 Aspirin* (Aspirin* Chew) 81 Mg Tab.chew, 81 MG PO DAILY, TAB.CHEW 06/14/18 Metoprolol Tartrate* (Lopressor*) 25 Mg Tab, 25 MG PO BID, #60 TAB 06/14/18 Atorvastatin Calcium* (Atorvastatin Calcium*) 20 Mg Tablet, 20 MG PO QHS, #30 TAB 06/14/18 Omeprazole* (Omeprazole*) 20 Mg Capsule.dr, 20 MG PO BID, #60 CAP 06/14/18 Allergies Allergies: Coded Allergies: Penicillins (Verified Allergy, Unknown, 06/14/18) amoxicillin (Verified Allergy, Unknown, 06/14/18) PMhx/Soc History of Surgery: Yes (3 stents angioplasty) Anesthesia Reaction: No Hx Neurological Disorder: Yes (cva) Hx Respiratory Disorders: No Hx Cardiac Disorders: Yes (HTN; [place] 2003) Hx Psychiatric Problems: No Hx Miscellaneous Medical Probl: Yes (HTN , ) Hx Alcohol Use: No Hx Substance Use: No Hx Tobacco Use: No Smoking Status: Never smoker Physical Exam Vitals Vital Signs Date Temp Pulse Resp B/P (MAP) Pulse Ox O2 O2 Flow FiO2 Time Delivery Rate 06/28/18 73 14 127/86 74 Room Air 01:15 (100) 06/28/18 76 13 131/94 98 Room Air 01:00 (106) 06/28/18 80 16 132/84 98 Room Air 00:45 (100) 06/28/18 75 16 140/95 100 Room Air 00:30 (110) 06/27/18 92 14 135/89 99 Room Air 23:33 (104) 06/27/18 97.9 84 18 135/89 99 23:15 (104) Physical Exam Const: No acute distress Head: Atraumatic Eyes: Normal Conjunctiva ENT: Normal External Ears, Nose and Mouth. Neck: Full range of motion. No meningismus. Resp: Clear to auscultation bilaterally Cardio: Regular rate and rhythm, no murmurs Abd: Soft, non tender, non distended. Normal bowel sounds Skin: No petechiae or rashes Back: No midline or flank tenderness Ext: No cyanosis, or edema Neur: Awake and alert Psych: Normal Mood and Affect Result Diagram: 06/27/18230706/27/182307 Results 24 hrs Laboratory Tests Test 06/27/18 23:05 06/27/18 23:08 Bedside Glucose 113 mg/dL White Blood Count 6.0 10^3/ul Red Blood Count 4.23 10^6/ul Hemoglobin 13.9 g/dl Hematocrit 40.8 % Mean Corpuscular Volume 96.5 fl Mean Corpuscular Hemoglobin 32.9 pg Mean Corpuscular Hemoglobin Concent 34.1 g/dl Red Cell Distribution Width 12.1 % Platelet Count 164 10^3/UL Mean Platelet Volume 9.7 fl Immature Granulocytes % 0.300 % Neutrophils % 46.3 % Lymphocytes % 35.7 % Monocytes % 12.0 % Eosinophils % 5.0 % Basophils % 0.7 % Nucleated Red Blood Cells % 0.0 /100WBC Immature Granulocytes # 0.020 10^3/ul Neutrophils # 2.8 10^3/ul Lymphocytes # 2.1 10^3/ul Monocytes # 0.7 10^3/ul Eosinophils # 0.3 10^3/ul Basophils # 0.0 10^3/ul Nucleated Red Blood Cells # 0.0 10^3/ul Prothrombin Time 12.3 Sec Prothrombin Time Ratio 1.0 INR International Normalized Ratio 0.90 Activated Partial Thromboplast Time 28.6 Sec Sodium Level 139 mmol/L Potassium Level 4.1 mmol/L Chloride Level 104 mmol/L Carbon Dioxide Level 27 mmol/L Anion Gap 8 Blood Urea Nitrogen 19 mg/dl Creatinine 1.24 mg/dl Est Glomerular Filtrat Rate mL/min 58 mL/min Glucose Level 111 mg/dl Hemoglobin A1c 5.5 % Calcium Level 9.5 mg/dl Total Bilirubin 0.7 mg/dl Direct Bilirubin 0.00 mg/dl Indirect Bilirubin 0.7 mg/dl Aspartate Amino Transf (AST/SGOT) 29 IU/L Alanine Aminotransferase (ALT/SGPT) 28 IU/L Alkaline Phosphatase 106 IU/L Creatine Kinase 62 IU/L Creatine Kinase Index 0.7 Creatinine Kinase MB (Mass) 0.44 ng/ml Troponin I < 0.012 ng/ml Total Protein 7.5 g/dl Albumin 4.3 g/dl Globulin 3.20 g/dl Albumin/Globulin Ratio 1.34 Triglycerides Level 105 mg/dl Cholesterol Level 139 mg/dl LDL Cholesterol, Calculated 70 mg/dl HDL Cholesterol 48 mg/dl Cholesterol/HDL Ratio 2.8 RATIO Ethyl Alcohol Level < 10.0 mg/dl Current Medications Medications Dose Sig/Ramos Start Time Status Last (Trade) Ordered Route PRN Stop Time Admin Dose Reason Admin Alteplase, 7.3 mg BOLUS OVER 1 06/28/18 DC 06/28/18 Recombinant MIN ONCE 00:00 00:24 (Activase) IV* 06/28/18 00:01 Alteplase, 66.1 mg ISCHEMIC 06/28/18 DC 06/28/18 Recombinant STROKE ONCE 00:00 00:26 (Activase) IV* 06/28/18 00:01 Sodium 50 ml @ 0 FLUSH AFTER 06/28/18 DC Chloride mls/hr TPA ONCE IV 00:00 06/28/18 00:01 Ondansetron 4 mg Q6H PRN 06/28/18 HCl (Zofran IV NAUSEA 01:00 Inj) AND/OR VOMITING Albuterol/ 3 ml Q2H RESP 06/28/18 Ipratropium THERAPY PRN 01:00 (Duoneb) NEB SHORTNESS OF BREATH 650 mg Q6H PRN 06/28/18 Acetaminophen PO PAIN 01:00 (Tylenol LEVEL 1-3 OR Liquid) FEVER 650 mg Q4H PRN 06/28/18 DC Acetaminophen PO Temp 01:00 (Tylenol greater than 06/28/18 01:12 Tab) 99.6F Docusate 100 mg BID PO 06/28/18 Sodium 09:00 (Colace) Procedures/MDM EKG: Rate/Rhythm: [Normal Sinus Rhythm] QRS, ST, T-waves: [No changes consistent w/ acute ischemia] Impression: [No evidence of ischemia or arrhythmia] Chest X-ray 1V Interpreted by me: Soft Tissue: No acute abnormalities Bones: No acute abnormalities Mediastinum/Cardiac Silhouette/Lungs: [No acute abnormalities] TPA was started at 1230 Medical decision makin-year-old male here with possible ischemic stroke. Recommended for TPA by telemetry neurology. Started here. Admitted to hospitalist with ICU bed. Critical Care: Time: 45 minutes, independent of any separately billable procedural time Treatments/Evaluations: Close monitoring and treatment of unstable vital signs, cardiorespiratory, and neurologic status, while maintaining tight balance of fluid, respiratory, and cardiac interventions. Departure Diagnosis: Primary Impression: Stroke CVA mechanism: unspecified Qualified Codes: I63.9 - Cerebral infarction, unspecified Condition: Critical WILBER ALDRIDGE Jun 28, 2018 01:21
[2018-06-28] MEDS: DOCUSATE SODIUM 100 MG CAP PO SCH ×2 (09:00→21:00)
--- NOTE | 2018-06-28 13:19 | PN ---
Date/Time of Note Date/Time of Note DATE: 06/28/18 TIME: 13:18 Assessment/Plan VTE Prophylaxis Risk score (from Ns)>0 risk: 3 SCD applied (from [facility] [place]): Yes Pharmacological prophylaxis: NA/contraindicated, other Pharm contraindication: other Lines/Catheters IV Catheter Type (from Rust): Saline Lock Assessment/Plan Hospital Course SUBJECTIVE: Complains of numbness on the right side. OBJECTIVE: Physical Exam General: Adequately build 67 year-old male lying in bed in no apparent distress. HEENT: Normocephalic, atraumatic. Eyes: Anicteric sclerae, conjunctivae clear. ENT: Nasal septum midline, oral mucosa moist. Neck supple, no JVD noticed. Respiratory: Bilaterally clear breath sounds. No use of accessory muscles of respiration. No adventitious breath sounds. Cardiovascular: S1, S2 heard. Regular rate and rhythm. Abdomen: Soft, nontender, and nondistended. Bowel sounds positive in all 4 quadrants. Genitourinary: Deferred. Extremities: No cyanosis, no clubbing, no edema. Peripheral pulses palpable. Neurologic: Cranial nerves II through XII grossly intact. The patient is awake, alert, and oriented. Right upper extremity weaker when compared to the left. Right lower extremity weaker when compared to the left. Skin: Normal skin turgor. No skin rashes. Labs & Vitals per chart ASSESSMENT & PLAN 67-year-old male with past medical history of hypertension, dyslipidemia, left- sided carotid stenosis, and recent stroke with scattered punctate foci of ischemia involving the left frontal gyri, caudate lobe, and left temporal gyri. The patient was evaluated by cardiology during his prior visit. The patient was discharged home on 06/18/2018. The patient came back to the emergency room on 06/27/2018 with worsening right-sided weakness. Therefore, the patient was evaluated by telemetry neurology and the patient was given TPA. 1. Worsening right-sided weakness in a patient with recent multifocal ischemic stroke. -Status post TPA. -Continue ICU monitoring. -Neurology evaluation. -Resumption of aspirin will be deferred to neurology. -PT/OT/ST evaluation. 2. Essential hypertension. -Permissive hypertension. 3. Dyslipidemia. -Continue statins. 4. Fluids, electrolytes, and nutrition. -Low-cholesterol diet. 5. DVT prophylaxis. -Bilateral SCDs. 6. Plan. -Continue ICU monitoring. -Await neurology evaluation. The patient was seen in collaboration with Dr. Amato. Critical care time: 35 minutes. Result Diagram: 06/28/18 0723 06/28/18 0723 Results 24hrs Laboratory Tests Test 06/27/18 23:05 06/27/18 23:08 06/28/18 07:23 Bedside Glucose 113 White Blood Count 6.0 6.8 Red Blood Count 4.23 L 4.14 L Hemoglobin 13.9 L 13.6 L Hematocrit 40.8 L 40.2 L Mean Corpuscular Volume 96.5 97.1 Mean Corpuscular Hemoglobin 32.9 32.9 Mean Corpuscular Hemoglobin Concent 34.1 33.8 Red Cell Distribution Width 12.1 12.3 Platelet Count 164 172 Mean Platelet Volume 9.7 10.2 Immature Granulocytes % 0.300 0.300 Neutrophils % 46.3 56.4 Lymphocytes % 35.7 25.3 Monocytes % 12.0 H 12.1 H Eosinophils % 5.0 5.2 Basophils % 0.7 0.7 Nucleated Red Blood Cells % 0.0 0.0 Immature Granulocytes # 0.020 0.020 Neutrophils # 2.8 3.8 Lymphocytes # 2.1 1.7 Monocytes # 0.7 0.8 Eosinophils # 0.3 0.4 Basophils # 0.0 0.1 Nucleated Red Blood Cells # 0.0 0.0 Prothrombin Time 12.3 Prothrombin Time Ratio 1.0 INR International Normalized Ratio 0.90 Activated Partial Thromboplast Time 28.6 Sodium Level 139 142 Potassium Level 4.1 4.0 Chloride Level 104 104 Carbon Dioxide Level 27 28 Anion Gap 8 10 Blood Urea Nitrogen 19 19 Creatinine 1.24 1.03 Est Glomerular Filtrat Rate mL/min 58 L > 60 Glucose Level 111 82 Hemoglobin A1c 5.5 5.4 Calcium Level 9.5 9.3 Total Bilirubin 0.7 0.8 Direct Bilirubin 0.00 0.00 Indirect Bilirubin 0.7 0.8 Aspartate Amino Transf (AST/SGOT) 29 24 Alanine Aminotransferase (ALT/SGPT) 28 28 Alkaline Phosphatase 106 92 Creatine Kinase 62 Creatine Kinase Index 0.7 Creatinine Kinase MB (Mass) 0.44 Troponin I < 0.012 Total Protein 7.5 7.1 Albumin 4.3 4.0 Globulin 3.20 3.10 Albumin/Globulin Ratio 1.34 1.29 Triglycerides Level 105 101 Cholesterol Level 139 146 LDL Cholesterol, Calculated 70 76 HDL Cholesterol 48 50 Cholesterol/HDL Ratio 2.8 2.9 Ethyl Alcohol Level < 10.0 H Exam/Review of Systems Exam Vitals Vital Signs Date Temp Pulse Resp B/P (MAP) Pulse Ox O2 O2 Flow FiO2 Time Delivery Rate 06/28/18 74 12 117/86 95 Room Air 10:00 (96) 06/28/18 98.4 08:00 Intake and Output 06/27/18 06/27/18 06/28/18 1515:00 23:00 07:00 IntakeIntake Total 66.1 ml BalanceBalance 66.1 ml Results Results 24hrs Laboratory Tests Test 06/27/18 23:05 06/27/18 23:08 06/28/18 07:23 Bedside Glucose 113 White Blood Count 6.0 6.8 Red Blood Count 4.23 L 4.14 L Hemoglobin 13.9 L 13.6 L Hematocrit 40.8 L 40.2 L Mean Corpuscular Volume 96.5 97.1 Mean Corpuscular Hemoglobin 32.9 32.9 Mean Corpuscular Hemoglobin Concent 34.1 33.8 Red Cell Distribution Width 12.1 12.3 Platelet Count 164 172 Mean Platelet Volume 9.7 10.2 Immature Granulocytes % 0.300 0.300 Neutrophils % 46.3 56.4 Lymphocytes % 35.7 25.3 Monocytes % 12.0 H 12.1 H Eosinophils % 5.0 5.2 Basophils % 0.7 0.7 Nucleated Red Blood Cells % 0.0 0.0 Immature Granulocytes # 0.020 0.020 Neutrophils # 2.8 3.8 Lymphocytes # 2.1 1.7 Monocytes # 0.7 0.8 Eosinophils # 0.3 0.4 Basophils # 0.0 0.1 Nucleated Red Blood Cells # 0.0 0.0 Prothrombin Time 12.3 Prothrombin Time Ratio 1.0 INR International Normalized Ratio 0.90 Activated Partial Thromboplast Time 28.6 Sodium Level 139 142 Potassium Level 4.1 4.0 Chloride Level 104 104 Carbon Dioxide Level 27 28 Anion Gap 8 10 Blood Urea Nitrogen 19 19 Creatinine 1.24 1.03 Est Glomerular Filtrat Rate mL/min 58 L > 60 Glucose Level 111 82 Hemoglobin A1c 5.5 5.4 Calcium Level 9.5 9.3 Total Bilirubin 0.7 0.8 Direct Bilirubin 0.00 0.00 Indirect Bilirubin 0.7 0.8 Aspartate Amino Transf (AST/SGOT) 29 24 Alanine Aminotransferase (ALT/SGPT) 28 28 Alkaline Phosphatase 106 92 Creatine Kinase 62 Creatine Kinase Index 0.7 Creatinine Kinase MB (Mass) 0.44 Troponin I < 0.012 Total Protein 7.5 7.1 Albumin 4.3 4.0 Globulin 3.20 3.10 Albumin/Globulin Ratio 1.34 1.29 Triglycerides Level 105 101 Cholesterol Level 139 146 LDL Cholesterol, Calculated 70 76 HDL Cholesterol 48 50 Cholesterol/HDL Ratio 2.8 2.9 Ethyl Alcohol Level < 10.0 H Medications Medication Current Medications Ondansetron HCl (Zofran Inj) 4 mg Q6H PRN IV NAUSEA AND/OR VOMITING; Start 06/28/18 at 01:00 Albuterol/ Ipratropium (Duoneb) 3 ml Q2H RESP THERAPY PRN NEB SHORTNESS OF BREATH; Start 06/28/18 at 01:00 Acetaminophen (Tylenol Liquid) 650 mg Q6H PRN PO PAIN LEVEL 1-3 OR FEVER; Start 06/28/18 at 01:00 Docusate Sodium (Colace) 100 mg BID PO ; Start 06/28/18 at 09:00 DIMITRI CAO NP Jun 28, 2018 13:19
--- NOTE | 2018-06-28 14:22 | RADRPT ---
Echocardiogram Report Patient Name: Kayden MIRZAent ID: [id number] : 1950 (67y 10m)Study Date: 06/28/2018 7:40:49 AM Gender: MAccession #: [id number] Tech: Cecil Presley SHANICE Location: 120 Ref.Physician: WILBER FUCHS Height(Cm): BSA: Weight(Kg): Quality: AdequateAccount #: Procedures: Echocardiographic Report: Transthoracic echocardiogram with complete 2D, M-Mode, and doppler examination. Indications: Cerebrovascular Accident. Measurements: 2D/M Mode Doppler Measurement Value Normal Range Measurement Value Normal Range LVIDd 2D 4.5 [ 4.2 - 5.8 ] cm AV Peak Saqib 1.2 [ 100.0 - 170.0 ] cm/sec LVIDs 2D 2.1 [ 2.5 - 4.0 ] cm AV Peak PG 6.0 [ 2.0 - 9.0 ] mmHg LVPWd 2D 1.1 [ 0.6 - 1.0 ] cm LVOT Peak Saqib 0.9 [ 70.0 - 110.0 ] cm/sec IVSd 2D 1.2 [ 0.6 - 1.0 ] cm LVOT Peak PG 3.0 [ 2.0 - 6.0 ] mmHg AoR Diam 2D 3.3 [ 2.6 - 3.4 ] cm MV E Peak Saqib 0.6 [ 60.0 - 130.0 ] cm/sec EDV 2D 90.5 [ 62.0 - 150.0 ] ml MV A Peak Saqib 0.9 [ 100.0 - 120.0 ] cm/sec ESV 2D 14.8 [ 21.0 - 61.0 ] ml MV E/A 0.6 [ 0.8 - 1.5 ] ratio EF 2D 83.6 [ 52.0 - 72.0 ] percent MV Decel Time 194 [ 104 - 258 ] msec LA Dimen 2D 3.1 [ 3.0 - 4.0 ] cm Lat E` Saqib 0.1 [ 10.0 - 15.0 ] cm/sec Lateral E/E` 6.0 [ 1.0 - 2.0 ] ratio MV E/A 0.6 [ 0.8 - 1.5 ] ratio Findings: Left Ventricle: Normal left ventricular systolic function. Normal left ventricular cavity size. Mild concentric left ventricular hypertrophy. Ejection fraction is visually estimated at 65 %. Tissue Doppler/Mitral Doppler indices are consistent with impaired relaxation (Stage I diastolic dysfunction). Right Ventricle: Normal right ventricular size. Normal right ventricular systolic function. Left Atrium: The left atrium is normal in size. Right Atrium: The right atrium is normal in size. Mitral Valve: Normal appearance and function of the mitral valve with trace physiologic regurgitation. Aortic Valve: No significant aortic stenosis or insufficiency. Aortic cusps appear mildly calcified. Tricuspid Valve: Normal appearance of the tricuspid valve. Unable to obtain RVSP due to minimal presence of tricuspid regurgitation. Pulmonic Valve: Pulmonic valve not well visualized. There is mild pulmonic regurgitation. Pericardium: Normal pericardium with no significant pericardial effusion. Aorta: Normal aortic root. IVC: Normal size and normal respiratory collapse consistent with normal right atrial pressure. Conclusions: Normal left ventricular systolic function. Normal left ventricular cavity size. Mild concentric left ventricular hypertrophy. Ejection fraction is visually estimated at 65 %. Tissue Doppler/Mitral Doppler indices are consistent with impaired relaxation (Stage I diastolic dysfunction). Normal appearance and function of the mitral valve with trace physiologic regurgitation. No significant aortic stenosis or insufficiency. Aortic cusps appear mildly calcified. Normal appearance of the tricuspid valve. Unable to obtain RVSP due to minimal presence of tricuspid regurgitation. Electronically Signed By: Caleb Gonzales 2018-06-28 14:21:43 PDT
[2018-06-28] MEDS: ATORVASTATIN 40 MG TAB PO SCH (21:09)
[2018-06-29] VITALS (25 sets, daily range): BP systolic 102–142; BP diastolic 77–92; PULSE 65–87; RESP 11–20
[2018-06-29] MEDS: DOCUSATE SODIUM 100 MG CAP PO SCH ×2 (08:20→21:00)
--- NOTE | 2018-06-29 10:10 | PN ---
Date/Time of Note Date/Time of Note DATE: 06/29/18 TIME: 10:07 Assessment/Plan VTE Prophylaxis Risk score (from Ns)>0 risk: 4 SCD applied (from [facility] [place]): Yes Pharmacological prophylaxis: NA/contraindicated Pharm contraindication: other (S/P TPA) Lines/Catheters IV C[facility]ter Type (from [facility]): Peripheral IV Assessment/Plan Hospital Course SUBJECTIVE: Complains of numbness on the right side. OBJECTIVE: Physical Exam General: Adequately build 67 year-old male lying in bed in no apparent distress. HEENT: Normocephalic, atraumatic. Eyes: Anicteric sclerae, conjunctivae clear. ENT: Nasal septum midline, oral mucosa moist. Neck supple, no JVD noticed. Respiratory: Bilaterally clear breath sounds. No use of accessory muscles of respiration. No adventitious breath sounds. Cardiovascular: S1, S2 heard. Regular rate and rhythm. Abdomen: Soft, nontender, and nondistended. Bowel sounds positive in all 4 quadrants. Genitourinary: Deferred. Extremities: No cyanosis, no clubbing, no edema. Peripheral pulses palpable. Neurologic: Cranial nerves II through XII grossly intact. The patient is awake, alert, and oriented. Right upper extremity weaker when compared to the left. Right lower extremity weaker when compared to the left. Skin: Normal skin turgor. No skin rashes. Labs & Vitals per chart ASSESSMENT & PLAN 67-year-old male with past medical history of hypertension, dyslipidemia, left- sided carotid stenosis, and recent stroke with scattered punctate foci of ischemia involving the left frontal gyri, caudate lobe, and left temporal gyri. The patient was evaluated by cardiology during his prior visit. The patient was discharged home on 06/18/2018. The patient came back to the emergency room on 06/27/2018 with worsening right-sided weakness. Therefore, the patient was evaluated by telemetry neurology and the patient was given TPA. 1. Worsening right-sided weakness in a patient with recent multifocal ischemic stroke. -Status post TPA. -Neurology evaluation. -Resumption of aspirin will be deferred to neurology. -PT/OT/ST evaluation. 2. Essential hypertension. -Permissive hypertension. 3. Dyslipidemia. -Continue statins. 4. Fluids, electrolytes, and nutrition. -Low-cholesterol diet. 5. DVT prophylaxis. -Bilateral SCDs. 6. Plan. -Await neurology evaluation. -Repeat CT scan of the brain to evaluate for any underlying intracranial bleed, provided the patient received TPA. -Obtain brain MRI. -If the repeat CT scan of the brain is negative for any bleed, the patient may be transferred out of the intensive care unit, if cleared by neurology. The patient was seen in collaboration with Dr. Amato. Critical care time: 35 minutes. Result Diagram: 06/29/18 0433 06/29/18 0433 Results 24hrs Laboratory Tests Test 06/29/18 04:33 White Blood Count 6.3 Red Blood Count 4.33 L Hemoglobin 14.1 Hematocrit 41.9 L Mean Corpuscular Volume 96.8 Mean Corpuscular Hemoglobin 32.6 Mean Corpuscular Hemoglobin Concent 33.7 Red Cell Distribution Width 12.2 Platelet Count 170 Mean Platelet Volume 10.3 Immature Granulocytes % 0.200 Neutrophils % 54.3 Lymphocytes % 27.2 Monocytes % 11.4 H Eosinophils % 6.0 Basophils % 0.9 Nucleated Red Blood Cells % 0.0 Immature Granulocytes # 0.010 Neutrophils # 3.4 Lymphocytes # 1.7 Monocytes # 0.7 Eosinophils # 0.4 Basophils # 0.1 Nucleated Red Blood Cells # 0.0 Sodium Level 143 Potassium Level 4.6 Chloride Level 107 Carbon Dioxide Level 30 Anion Gap 6 Blood Urea Nitrogen 18 Creatinine 1.11 Est Glomerular Filtrat Rate mL/min > 60 Glucose Level 84 Calcium Level 9.6 Phosphorus Level 3.8 Magnesium Level 2.3 Exam/Review of Systems Exam Vitals Vital Signs Date Temp Pulse Resp B/P (MAP) Pulse Ox O2 O2 Flow FiO2 Time Delivery Rate 06/29/18 70 13 128/89 98 Room Air 09:00 (102) 06/29/18 97.6 08:00 Intake and Output 06/28/18 06/28/18 06/29/18 1414:59 22:59 06:59 IntakeIntake Total 150 ml 150 ml OutputOutput Total 300 ml 500 ml BalanceBalance -150 ml 150 ml -500 ml Results Results 24hrs Laboratory Tests Test 06/29/18 04:33 White Blood Count 6.3 Red Blood Count 4.33 L Hemoglobin 14.1 Hematocrit 41.9 L Mean Corpuscular Volume 96.8 Mean Corpuscular Hemoglobin 32.6 Mean Corpuscular Hemoglobin Concent 33.7 Red Cell Distribution Width 12.2 Platelet Count 170 Mean Platelet Volume 10.3 Immature Granulocytes % 0.200 Neutrophils % 54.3 Lymphocytes % 27.2 Monocytes % 11.4 H Eosinophils % 6.0 Basophils % 0.9 Nucleated Red Blood Cells % 0.0 Immature Granulocytes # 0.010 Neutrophils # 3.4 Lymphocytes # 1.7 Monocytes # 0.7 Eosinophils # 0.4 Basophils # 0.1 Nucleated Red Blood Cells # 0.0 Sodium Level 143 Potassium Level 4.6 Chloride Level 107 Carbon Dioxide Level 30 Anion Gap 6 Blood Urea Nitrogen 18 Creatinine 1.11 Est Glomerular Filtrat Rate mL/min > 60 Glucose Level 84 Calcium Level 9.6 Phosphorus Level 3.8 Magnesium Level 2.3 Medications Medication Current Medications Ondansetron HCl (Zofran Inj) 4 mg Q6H PRN IV NAUSEA AND/OR VOMITING; Start 06/28/18 at 01:00 Albuterol/ Ipratropium (Duoneb) 3 ml Q2H RESP THERAPY PRN NEB SHORTNESS OF BREATH; Start 06/28/18 at 01:00 Acetaminophen (Tylenol Liquid) 650 mg Q6H PRN PO PAIN LEVEL 1-3 OR FEVER; Start 06/28/18 at 01:00 Docusate Sodium (Colace) 100 mg BID PO Last administered on 06/29/18at 08:20; Admin Dose 100 MG; Start 06/28/18 at 09:00 Atorvastatin Calcium (Lipitor) 40 mg HS PO Last administered on 06/28/18at 21:09; Admin Dose 40 MG; Start 06/28/18 at 21:00 DIMITRI CAO NP Jun 29, 2018 10:10
--- NOTE | 2018-06-29 11:04 | CONS ---
Assessment/Plan Assessment/Plan Hospital Course 67 yo M with recent hx of stroke 2 weeks ago, following an initial stroke ~ 1 mo ago, who presents for evaluation of acutely worsened R sided weakness... for which neurology is consulted. The clinical picture is most ominously concerning for recurrent stroke. The pt is now s/p TPA administration on 4/[address]/CTA H/N is without evidence of acute intracranial pathology, though is notable for intracranial athero. The patient has not yet started continuous holter monitoring as an outpatient... P: Await CTH without contrast to exclude hemorrhagic transformation MRI brain to confirm new ischemia Add UDS Resume ASA/Plavix for stroke ppx, if CTH is negative for hemorrhage Resume Lipitor qhs Other medical management per primary PT/OT/ST as necessary Will follow clinically Consultation Date/Type/Reason Admit Date/Time Type of Consult Neurology Reason for Consultation R sided weakness Requesting Provider: DIMITRI CAO NP Date/Time of Note DATE: 06/29/18 TIME: 11:04 Hx of Present Illness 67 yo M with hx of recent strokes 2 weeks ago and ~ 1 month ago, HTN, HLD who presented to the ED with c/o an acute, worsening R sided weakness. History was obtained from pt and chart review. The pt states that at his new baseline, he has mild weakness on the R d/t his previous strokes. He stated that it suddenly got worse 2 nights ago, around 10:30pm. He states that he called his primary who suggested that he go to the ED. Teleneuro was called and a decision was made for thrombolytics. He is ~ 1 day s/p TPA. He continues to endorse R sided weakness, though states that it has improved somewhat with the TPA administration. He also endorses mild numbness on the side. It is additionally elsewhere noted: Hx of Present Illness This is a 64-year-old male with a history of hypertension, dyslipidemia, recently diagnosed ischemic embolic stroke who presented to ER complaining of worsening right-sided weakness. Patient was discharged from here about 2 weeks ago after he was admitted for right-sided weakness secondary to CVA. When patient presented to ER, CT was negative for acute findings. Angio of the head and neck without hemodynamically significant stenosis. He was evaluated by tele-neurologist and is now status post TPA. negative unless noted otherwise in HPI Exam/Review of Systems Exam Vitals Vital Signs Date Temp Pulse Resp B/P (MAP) Pulse Ox O2 O2 Flow FiO2 Time Delivery Rate 06/29/18 97.9 77 14 130/92 96 Room Air 10:00 (105) Intake and Output 06/28/18 06/28/18 06/29/18 1515:00 23:00 07:00 IntakeIntake Total 150 ml 150 ml 0 ml OutputOutput Total 300 ml 500 ml BalanceBalance -150 ml 150 ml -500 ml Exam PE: Gen Appearance: No Apparent Distress HEENT: Normocephalic Cardiovascular: Regular rate Lungs: Clear bilaterally Abdomen: Soft Extremities: Dry NE: The patient was alert and oriented.. Language was normal. Fund of knowledge was normal. Pupils were equal and reactive to light. There was no afferent pupillary defect. Visual khoury were normal. Funduscopic examination was limited Extra-ocular movements were full. Ptosis was absent. There was no nystagmus. Facial sensation was normal. Face was symmetric with normal strength. Hearing was intact. Palate movements were normal. Neck strength was normal. There was normal tongue bulk and speed of movement. Tone was normal. Muscle bulk was normal. I did not see fasciculations. Arms and legs were weak on the R. R arm and leg drifts were noted. Vibration sensation, temperature and pinprick sensation was diminished on the R side. Rapid alternating movements were normal. There was no dysmetria. There was no intention tremor. Gait was deferred due to bedrest. Arm and leg reflexes were 2+ and symmetric. Pompa's sign was absent. Plantar responses were flexor. Results Result Diagram: 06/29/18 0433 06/29/18 0433 Results 24hrs Laboratory Tests Test 06/29/18 04:33 White Blood Count 6.3 Red Blood Count 4.33 L Hemoglobin 14.1 Hematocrit 41.9 L Mean Corpuscular Volume 96.8 Mean Corpuscular Hemoglobin 32.6 Mean Corpuscular Hemoglobin Concent 33.7 Red Cell Distribution Width 12.2 Platelet Count 170 Mean Platelet Volume 10.3 Immature Granulocytes % 0.200 Neutrophils % 54.3 Lymphocytes % 27.2 Monocytes % 11.4 H Eosinophils % 6.0 Basophils % 0.9 Nucleated Red Blood Cells % 0.0 Immature Granulocytes # 0.010 Neutrophils # 3.4 Lymphocytes # 1.7 Monocytes # 0.7 Eosinophils # 0.4 Basophils # 0.1 Nucleated Red Blood Cells # 0.0 Sodium Level 143 Potassium Level 4.6 Chloride Level 107 Carbon Dioxide Level 30 Anion Gap 6 Blood Urea Nitrogen 18 Creatinine 1.11 Est Glomerular Filtrat Rate mL/min > 60 Glucose Level 84 Calcium Level 9.6 Phosphorus Level 3.8 Magnesium Level 2.3 Medications Medication Current Medications Ondansetron HCl (Zofran Inj) 4 mg Q6H PRN IV NAUSEA AND/OR VOMITING; Start 06/28/18 at 01:00 Albuterol/ Ipratropium (Duoneb) 3 ml Q2H RESP THERAPY PRN NEB SHORTNESS OF BREATH; Start 06/28/18 at 01:00 Acetaminophen (Tylenol Liquid) 650 mg Q6H PRN PO PAIN LEVEL 1-3 OR FEVER; Start 06/28/18 at 01:00 Docusate Sodium (Colace) 100 mg BID PO Last administered on 06/29/18at 08:20; Admin Dose 100 MG; Start 06/28/18 at 09:00 Atorvastatin Calcium (Lipitor) 40 mg HS PO Last administered on 06/28/18at 21:09; Admin Dose 40 MG; Start 06/28/18 at 21:00 Past Medical History reviewed Home Meds Reported Medications Clopidogrel Bisulfate (Clopidogrel) 75 Mg Tablet, 75 MG PO DAILY, #30 TAB 06/14/18 Aspirin* (Aspirin* Chew) 81 Mg Tab.chew, 81 MG PO DAILY, TAB.CHEW 06/14/18 Metoprolol Tartrate* (Lopressor*) 25 Mg Tab, 25 MG PO BID, #60 TAB 06/14/18 Atorvastatin Calcium* (Atorvastatin Calcium*) 20 Mg Tablet, 20 MG PO QHS, #30 TAB 06/14/18 Omeprazole* (Omeprazole*) 20 Mg Capsule.dr, 20 MG PO BID, #60 CAP 06/14/18 Medications Current Medications Ondansetron HCl (Zofran Inj) 4 mg Q6H PRN IV NAUSEA AND/OR VOMITING; Start 06/28/18 at 01:00 Albuterol/ Ipratropium (Duoneb) 3 ml Q2H RESP THERAPY PRN NEB SHORTNESS OF BREATH; Start 06/28/18 at 01:00 Acetaminophen (Tylenol Liquid) 650 mg Q6H PRN PO PAIN LEVEL 1-3 OR FEVER; Start 06/28/18 at 01:00 Docusate Sodium (Colace) 100 mg BID PO Last administered on 06/29/18at 08:20; Admin Dose 100 MG; Start 06/28/18 at 09:00 Atorvastatin Calcium (Lipitor) 40 mg HS PO Last administered on 06/28/18at 21:09; Admin Dose 40 MG; Start 06/28/18 at 21:00 Allergies: Coded Allergies: Penicillins (Verified Allergy, Unknown, 06/14/18) amoxicillin (Verified Allergy, Unknown, 06/14/18) Past Surgical History reviewed Social History reviewed Smoking Status: Former smoker RENATA HOOVER NP Jun 29, 2018 11:04 COSTA RAPP Jun 29, 2018 13:14
[2018-06-29] MEDS: ATORVASTATIN 40 MG TAB PO SCH (21:12)
[2018-06-30] VITALS (10 sets, daily range): BP systolic 110–147; BP diastolic 75–85; PULSE 68–96; RESP 16–18
--- NOTE | 2018-06-30 06:02 | PN ---
Date/Time of Note Date/Time of Note DATE: 06/30/18 TIME: 06:01 Assessment/Plan VTE Prophylaxis Risk score (from Ns)>0 risk: 3 SCD applied (from [facility] [place] Yes Pharmacological prophylaxis: NA/contraindicated, other Pharm contraindication: other Lines/Catheters IV Catheter Type (from [facility]): Saline Lock Urinary Cath still in place: No Assessment/Plan Hospital Course SUBJECTIVE: Complains of numbness on the right side. OBJECTIVE: Physical Exam General: Adequately build 67 year-old male lying in bed in no apparent distress. HEENT: Normocephalic, atraumatic. Eyes: Anicteric sclerae, conjunctivae clear. ENT: Nasal septum midline, oral mucosa moist. Neck supple, no JVD noticed. Respiratory: Bilaterally clear breath sounds. No use of accessory muscles of respiration. No adventitious breath sounds. Cardiovascular: S1, S2 heard. Regular rate and rhythm. Abdomen: Soft, nontender, and nondistended. Bowel sounds positive in all 4 quadrants. Genitourinary: Deferred. Extremities: No cyanosis, no clubbing, no edema. Peripheral pulses palpable. Neurologic: Cranial nerves II through XII grossly intact. The patient is awake, alert, and oriented. Right upper extremity weaker when compared to the left. Right lower extremity weaker when compared to the left. Skin: Normal skin turgor. No skin rashes. Labs & Vitals per chart ASSESSMENT & PLAN 67-year-old male with past medical history of hypertension, dyslipidemia, left- sided carotid stenosis, and recent stroke with scattered punctate foci of ischemia involving the left frontal gyri, caudate lobe, and left temporal gyri. The patient was evaluated by cardiology during his prior visit. The patient was discharged home on 06/18/2018. The patient came back to the emergency room on 06/27/2018 with worsening right-sided weakness. Therefore, the patient was evaluated by telemetry neurology and the patient was given TPA. 1. Worsening right-sided weakness in a patient with recent multifocal ischemic stroke. -Status post TPA. -Brain MRI negative for any acute ischemia. -Resume aspirin and Plavix since there is no evidence of any hemorrhage on repeat CT after TPA. -PT/OT/ST evaluation. 2. Essential hypertension. -Resume antihypertensives. 3. Dyslipidemia. -Continue statins. 4. Fluids, electrolytes, and nutrition. -Low-cholesterol diet. 5. DVT prophylaxis. -Bilateral SCDs. 6. Plan. -Resume aspirin, Plavix, and antihypertensives. -[facility]. The patient was seen in collaboration with Dr. Amato. Result Diagram: 06/29/18 0433 06/29/18 043 Exam/Review of Systems Exam Vitals Vital Signs Date Temp Pulse Resp B/P (MAP) Pulse Ox O2 O2 Flow FiO2 Time Delivery Rate 06/30/18 79 04:00 06/30/18 98.6 16 117/75 98 Room Air 03:49 (89) Intake and Output 06/29/18 06/29/18 06/30/18 1515:00 23:00 07:00 IntakeIntake Total 1205 ml 420 ml OutputOutput Total 1410 ml 1370 ml BalanceBalance -205 ml -950 ml Medications Medication Current Medications Ondansetron HCl (Zofran Inj) 4 mg Q6H PRN IV NAUSEA AND/OR VOMITING; Start 06/28/18 at 01:00 Albuterol/ Ipratropium (Duoneb) 3 ml Q2H RESP THERAPY PRN NEB SHORTNESS OF BREATH; Start 06/28/18 at 01:00 Acetaminophen (Tylenol Liquid) 650 mg Q6H PRN PO PAIN LEVEL 1-3 OR FEVER; Start 06/28/18 at 01:00 Docusate Sodium (Colace) 100 mg BID PO Last administered on 06/29/18at 08:20; Admin Dose 100 MG; Start 06/28/18 at 09:00 Atorvastatin Calcium (Lipitor) 40 mg HS PO Last administered on 06/29/18at 21:12; Admin Dose 40 MG; Start 06/28/18 at 21:00 DIMITRI CAO NP Jun 30, 2018 06:02
[2018-06-30] MEDS: DOCUSATE SODIUM 100 MG CAP PO SCH ×2 (09:57→21:14)
--- NOTE | 2018-06-30 13:59 | CONS ---
Assessment/Plan Assessment/Plan Hospital Course 67 yo M with recent hx of stroke 2 weeks ago, following an initial stroke ~ 1 mo ago, who presents for evaluation of acutely worsened R sided weakness... for which neurology is consulted. The clinical picture was initially concerning for recurrent stroke. The pt is now s/p TPA administration on 4/15 am. MRI brain is, though, without evidence of acute ischemia. CT/CTA H/N is without evidence of acute intracranial pathology, though is notable for intracranial athero. Repeat CTH is negative for hemorrhage UDS is neg The patient has not yet started continuous holter monitoring as an outpatient... P: Resume ASA/Plavix for stroke prevention Cont Lipitor qhs for the same Other medical management per primary PT/OT/ST as necessary Extended Holter as an outpatient as previously recommended Will follow clinically Consultation Date/Type/Reason Admit Date/Time Jun 27, 2018 at 23:54 Type of Consult Neurology Requesting Provider: DIMITRI CAO NP Date/Time of Note DATE: 06/30/18 TIME: 13:58 24 HR Interval Summary Free Text/Dictation Continues acute care. S/p MRI Exam Vital Signs Vitals Vital Signs Date Temp Pulse Resp B/P (MAP) Pulse Ox O2 O2 Flow FiO2 Time Delivery Rate 06/30/18 96 13:11 06/30/18 98.2 18 147/82 97 Room Air 11:25 (103) Intake and Output 06/29/18 06/29/18 06/30/18 1414:59 22:59 06:59 IntakeIntake Total 1045 ml 580 ml 400 ml OutputOutput Total 1030 ml 1750 ml BalanceBalance 15 ml -1170 ml 400 ml Exam PE: Gen Appearance: No Apparent Distress HEENT: Normocephalic Cardiovascular: Regular rate Lungs: Clear bilaterally Abdomen: Soft Extremities: Dry NE: The patient was alert and oriented. Language was normal. Fund of knowledge was normal. Pupils were equal and reactive to light. There was no afferent pupillary defect. Visual khoury were normal. Funduscopic examination was limited. Extra-ocular movements were full. Ptosis was absent. There was no nystagmus. Facial sensation was normal. Face was symmetric with normal strength. Hearing was intact. Palate movements were normal. Neck strength was normal. There was normal tongue bulk and speed of movement. Tone was normal. Muscle bulk was normal. I did not see fasciculations. Arms and legs were strong. Vibration sensation was normal. Temperature and pinprick sensation was normal. Rapid alternating movements were normal. There was no dysmetria. There was no intention tremor. Gait was deferred due to bedrest. Arm and leg reflexes were 2+ and symmetric. Pompa's sign was absent. Plantar responses were flexor. COSTA RAPP Jun 30, 2018 13:59 RENATA HOOVER NP Jun 30, 2018 15:54
[2018-06-30] MEDS: ATORVASTATIN 40 MG TAB PO SCH (21:14)
[2018-06-30] MEDS: METOPROLOL 25 MG TAB PO SCH (21:15)
[2018-07-01] VITALS (7 sets, daily range): BP systolic 116–131; BP diastolic 67–88; PULSE 62–73; RESP 18–19
[2018-07-01] MEDS: METOPROLOL 25 MG TAB PO SCH (08:50)
[2018-07-01] MEDS: DOCUSATE SODIUM 100 MG CAP PO SCH (08:52)
[2018-07-01] MEDS ORDERED: CLOPIDOGREL 75 MG TAB PO SCH (09:00)
[2018-07-01] MEDS ORDERED: ASPIRIN 81 MG TAB PO SCH (09:00)
--- NOTE | 2018-07-01 10:00 | PDOCDIS ---
Discharge Instructions CONDITION [id number] Patient Condition: [id number] Stable HOME CARE INSTRUCTIONS: [id number] Diet Instructions: [id number] Low Fat /Cholesterol FOLLOW UP/APPOINTMENTS Follow-up Plan Follow-up with your primary care physician in 2 weeks. Have your primary care physician arrange for outpatient neurology follow-up. OTHER ORDERS: Other Orders: 1. Follow-up with your primary care physician in 2 weeks. Have your primary care physician arrange for outpatient neurology follow-up. 2. Take a low-cholesterol diet. 3. Resume activities as tolerated. 4. Resume home medications. Take increased dose of Lipitor (40 mg). 5. Please go to the nearest emergency room if you have sudden onset of speech disturbances, focal weakness, or any other unusual signs/symptoms. DIMITRI CAO NP Jul 01, 2018 10:00
--- NOTE | 2018-07-01 10:10 | DS ---
Date/Time of Note Date/Time of Note DATE: 07/01/18 TIME: 10:08 Discharge Summary Admission/Discharge Info Admit Date/Time Jun 27, 2018 at 23:54 Discharge Date/Time Discharge Diagnosis 1. Worsening right-sided weakness in a patient with recent multifocal ischemic stroke. Status post TPA. Latest brain MRI negative for any acute ischemia. 2. Essential hypertension. 3. Dyslipidemia. 4. Carotid artery disease (left sided; mild per CTA). Patient Condition: Stable Consults 1. Latia Askew MD, Neurology. 2. Jose A Tran MD, Teleneurologist. Procedures Brain MRI IMPRESSION: 1. No evidence of acute ischemia. 2. Mild cortical atrophy and mild microvascular ischemic disease. Chronic lacunar infarcts in the left centrum semiovale and caudate nucleus. Neck CTA IMPRESSION: 1. Negative for evidence of hemodynamically significant stenosis or occlusion of the major cervical and intracranial arteries. 2. Moderate atherosclerosis of the intracranial and extracranial arteries with mild stenosis as described. Negative for dissection, aneurysm or vascular malformation. 3. Negative for abnormal intraparenchymal enhancement. 2D Echocardiogram Conclusions: Normal left ventricular systolic function. Normal left ventricular cavity size. Mild concentric left ventricular hypertrophy. Ejection fraction is visually estimated at 65 %. Tissue Doppler/Mitral Doppler indices are consistent with impaired relaxation (Stage I diastolic dysfunction). Normal appearance and function of the mitral valve with trace physiologic regurgitation. No significant aortic stenosis or insufficiency. Aortic cusps appear mildly calcified. Normal appearance of the tricuspid valve. Unable to obtain RVSP due to minimal presence of tricuspid regurgitation. Hx of Present Illness This is a 67-year-old male with past medical history of hypertension, dyslipidemia, left-sided carotid stenosis, and recent stroke with scattered punctate foci of ischemia involving the left frontal gyri, caudate lobe, and left temporal gyri. The patient was evaluated by cardiology during his prior visit. The patient was discharged home on 06/18/2018. The patient came back to the emergency room on 06/27/2018 with worsening right-sided weakness. Therefore, the patient was evaluated by telemetry neurology and the patient was given TPA. Hospital Course The patient was admitted to inpatient intensive care unit. Permissive hypertension was provided for suspected stroke. A neurology consult was obtained. PT/OT/ST evaluation was ordered. The patient was not continued on any antiplatelet therapy for any anticoagulation because of TPA use. The patient underwent a repeat CT scan that was negative for any hemorrhage. After no hemorrhage was confirmed with repeat CT scan, the patient was resumed on aspirin and Plavix that was initiated because of his multifocal ischemic stroke in the beginning of June 2018. The patient's antihypertensives were resumed 48 hours after symptom onset. Nevertheless, the patient's brain MRI was negative for any acute ischemia. The patient was maintained on statins. The patient's statin dosing was increased. The patient's neck CTA confirmed left-sided carotid stenosis although mild. The patient's 2D echocardiogram was showing preserved left ventricular ejection fraction. Of note, the patient was evaluated by cardiology on his previous visit in the beginning of June 2018 including a transesophageal echocardiogram that was negative for any vegetation. The patient was moved out of the intensive care unit after 24 hours of TPA administration. The patient underwent physical therapy. There was an interim plan to transfer this patient to inpatient acute rehabilitation unit. However, this patient is a very high level for acute rehabilitation unit. Therefore, a clinical decision was made to discharge this patient home with home health. The patient had a stable hospital course. Discharge Instructions 1. Follow-up with your primary care physician in 2 weeks. Have your primary care physician arrange for outpatient neurology follow-up. 2. Take a low-cholesterol diet. 3. Resume activities as tolerated. 4. Resume home medications. 5. Please go to the nearest emergency room if you have sudden onset of speech disturbances, focal weakness, or any other unusual signs/symptoms. The patient verbalized understanding of his discharge instructions. At this time I would like to thank all the consultants for seeing the patient and providing clinical recommendations. The patient was seen in collaboration with Dr. Amato. Home Meds Active Scripts Atorvastatin* (Atorvastatin*) 40 Mg Tablet, 40 MG PO HS, #30 TAB Prov:DIMITRI CAO [employer] 07/01/18 Reported Medications Clopidogrel Bisulfate (Clopidogrel) 75 Mg Tablet, 75 MG PO DAILY, #30 TAB 06/14/18 Aspirin* (Aspirin* Chew) 81 Mg Tab.chew, 81 MG PO DAILY, TAB.CHEW 06/14/18 Metoprolol Tartrate* (Lopressor*) 25 Mg Tab, 25 MG PO BID, #60 TAB 06/14/18 Omeprazole* (Omeprazole*) 20 Mg Capsule.dr 20 MG PO BID, #60 CAP 06/14/18 Discontinued Reported Medications Atorvastatin Calcium* (Atorvastatin Calcium*) 20 Mg Tablet, 20 MG PO QHS, #30 TAB 06/14/18 Follow-up Plan Follow-up with your primary care physician in 2 weeks. Have your primary care physician arrange for outpatient neurology follow-up. Primary Care Provider Not On Staff Doctor Time spent on discharge: > 30 minutes Pending Labs Laboratory Tests Test 07/01/18 07:25 White Blood Count 7.3 10^3/ul (4.8-10.8) Red Blood Count 4.55 10^6/ul (4.70-6.10) Hemoglobin 14.9 g/dl (14.0-18.0) Hematocrit 44.1 % (42.0-52.0) Mean Corpuscular Volume 96.9 fl (82.0-101.0) Mean Corpuscular Hemoglobin 32.7 pg (29.0-33.0) Mean Corpuscular Hemoglobin Concent 33.8 g/dl (32.0-37.0) Red Cell Distribution Width 12.2 % (11.5-14.5) Platelet Count 179 10^3/UL (140-415) Mean Platelet Volume 10.2 fl (7.4-10.4) Immature Granulocytes % 0.300 % (0.001-0.429) Neutrophils % 53.4 % (39.0-77.0) Lymphocytes % 27.3 % (15.0-51.0) Monocytes % 11.1 % (0.0-11.0) Eosinophils % 7.1 % (0.0-7.0) Basophils % 0.8 % (0.0-2.0) Nucleated Red Blood Cells % 0.0 /100WBC (0.0-0.0) Immature Granulocytes # 0.020 10^3/ul (0.0-0.031) Neutrophils # 3.9 10^3/ul (1.6-7.5) Lymphocytes # 2.0 10^3/ul (0.8-2.9) Monocytes # 0.8 10^3/ul (0.3-0.9) Eosinophils # 0.5 10^3/ul (0.0-0.5) Basophils # 0.1 10^3/ul (0.0-0.1) Nucleated Red Blood Cells # 0.0 10^3/ul (0.0-0.0) Sodium Level 142 mmol/L (135-144) Potassium Level 4.1 mmol/L (3.5-5.1) Chloride Level 103 mmol/L (97-110) Carbon Dioxide Level 30 mmol/L (21-31) Anion Gap 9 (5-13) Blood Urea Nitrogen 19 mg/dl (7-20) Creatinine 1.03 mg/dl (0.61-1.24) Est Glomerular Filtrat Rate mL/min > 60 mL/min (>60) Glucose Level 76 mg/dl (70-220) Calcium Level 9.8 mg/dl (8.4-10.2) Phosphorus Level 3.8 mg/dl (2.5-4.9) Magnesium Level 2.2 mg/dl (1.7-2.5) DIMITRI CAO NP Jul 01, 2018 10:10
--- NOTE | 2018-07-01 11:13 | CONS ---
Assessment/Plan Assessment/Plan Hospital Course 67 yo M with recent hx of stroke 2 weeks ago, following an initial stroke ~ 1 mo ago, who presents for evaluation of acutely worsened R sided weakness... for which neurology is consulted. The clinical picture is most ominously concerning for recurrent stroke. The pt is now s/p TPA administration on 4/15 am. MRI brain is reassuringly without acute intracranial pathology. CT/CTA H/N is without evidence of acute intracranial pathology, though is notable for intracranial athero. Repeat CTH is stable. UDS - The patient has not yet started continuous holter monitoring as an outpatient... P: Resume ASA/Plavix for stroke prevention Cont Lipitor qhs for the same Other medical management per primary PT/OT/ST as necessary Will follow clinically Consultation Date/Type/Reason Admit Date/Time Jun 27, 2018 at 23:54 Type of Consult Neurology Reason for Consultation R sided weakness Requesting Provider: DIMITRI CAO NP Date/Time of Note DATE: 07/01/18 TIME: 11:04 24 HR Interval Summary Free Text/Dictation Continues acute care. Exam Vital Signs Vitals Vital Signs Date Temp Pulse Resp B/P (MAP) Pulse Ox O2 O2 Flow FiO2 Time Delivery Rate 07/01/18 69 08:06 07/01/18 97.5 18 125/81 96 Room Air 07:08 (96) Intake and Output 06/30/18 06/30/18 07/01/18 1515:00 23:00 07:00 IntakeIntake Total 1200 ml 250 ml BalanceBalance 1200 ml 250 ml Exam PE: Gen Appearance: No Apparent Distress HEENT: Normocephalic Cardiovascular: Regular rate Lungs: Clear bilaterally Abdomen: Soft Extremities: Dry NE: The patient was alert and oriented. Language was normal. Fund of knowledge was normal. Pupils were equal and reactive to light. There was no afferent pupillary defect. Visual khoury were normal. Funduscopic examination was limited. Extra-ocular movements were full. Ptosis was absent. There was no nystagmus. Facial sensation was normal. Face was symmetric with normal strength. Hearing was intact. Palate movements were normal. Neck strength was normal. There was normal tongue bulk and speed of movement. Tone was normal. Muscle bulk was normal. I did not see fasciculations. Arms and legs were strong. Vibration sensation was normal. Temperature and pinprick sensation was normal. Rapid alternating movements were normal. There was no dysmetria. There was no intention tremor. Gait was deferred due to bedrest. Arm and leg reflexes were 2+ and symmetric. Pompa's sign was absent. Plantar responses were flexor. RENATA HOOVER NP Jul 01, 2018 11:13
[2018-07-01] MEDS ORDERED: ATOR40TA68 PO (11:24)
== END 2018-07-01 16:22 | disposition home health service (06) | DRG 62 ==
LOC: E/R 22:59 → ICU 23:54 → TEL 06-29 23:05
PROVIDERS: ADMIT Internal Medicine; ATTEND Internal Medicine
DX: I63.412 Cerebral infarction due to embolism of left middle cerebral artery (principal); G81.91 Hemiplegia, unspecified affecting right dominant side; R29.703 NIHSS score 3; I10 Essential (primary) hypertension; E78.5 Hyperlipidemia, unspecified; I25.10 Atherosclerotic heart disease of native coronary artery without angina pectoris; I25.2 Old myocardial infarction; Z79.02 Long term (current) use of antithrombotics/antiplatelets; Z79.82 Long term (current) use of aspirin; Z95.5 Presence of coronary angioplasty implant and graft
CPT/HCPCS: 36415; 70450; 70496; 70498; 70551; 71045; 80048; 80053; 80061; 80307; 81003; 82550; 82553; 82962; 83036; 83735; 84100; 84484; 85025; 85610; 85730; 87081; 92610; 93005; 93306; 97116; 97162; 97165; 97530; 97535; J2997; Q9967